=== PATIENT | female | born 1950 | race Caucasian/White ===

== ENCOUNTER → 2019-11-18 09:09 | Outpatient (BNVA) | payer MEDICARE, MEDICAID, SELFPAY | PROVIDERS: Visit Provider Family Medicine | DX: I10 Essential (primary) hypertension (principal); R73.9 Hyperglycemia, unspecified; F41.9 Anxiety disorder, unspecified; E55.9 Vitamin D deficiency, unspecified; E53.8 Deficiency of other specified B group vitamins; M48.061 Spinal stenosis, lumbar region without neurogenic claudication; F32.9 Major depressive disorder, single episode, unspecified; J44.9 Chronic obstructive pulmonary disease, unspecified | CPT/HCPCS: 80053; 80061; 82306; 82607; 84443 ==

== ENCOUNTER 2020-03-29 13:33 | Outpatient (CLI) | payer MEDICARE, MEDICAID, SELFPAY ==
--- NOTE | 2020-03-29 13:41 | XRR_ITS ---
PROCEDURE INFORMATION: Exam: XR Thoracic Spine, 3 Views Exam date and time: 03/29/2020 2:21 PM Age: 69 years old Clinical indication: Pain and injury or trauma; Fall; Initial encounter; Blunt trauma (contusions or hematomas); Pain in thoracic spine; Additional info: Thoracic back pain; Recent fall TECHNIQUE: Imaging protocol: XR of the thoracic spine, 3 views. COMPARISON: No relevant prior studies available. FINDINGS: Vertebrae: Osteopenia and osteoarthritis of the dorsal spine. No acute fracture. Normal alignment. Soft tissues: Metallic surgical clips seen in the left upper quadrant of the abdomen. XR/XR thoracic spine 3V* [id number] IMPRESSION: 1. Osteopenia and osteoarthritis 2. Otherwise No acute findings. 3. Metallic surgical clips left upper quadrant .
--- NOTE | 2020-03-29 13:41 | XRR_ITS ---
PROCEDURE INFORMATION: Exam: XR Cervical Spine, 2 or 3 Views Exam date and time: 03/29/2020 2:15 PM Age: 69 years old Clinical indication: Pain and injury or trauma; Fall; Initial encounter; Blunt trauma; Neck pain; Additional info: Neck pain; Recent fall TECHNIQUE: Imaging protocol: XR of the cervical spine, 2 or 3 views. COMPARISON: No relevant prior studies available. FINDINGS: Vertebrae: There is moderate osteoarthritis seen with intervertebral disc space narrowing and bone spurs at multiple levels. No acute fracture. There is loss of cervical lordosis seen which may reflect muscle spasm. Soft tissues: Unremarkable. XR/XR cervical spine 3V* [id number] IMPRESSION: 1. No acute findings. 2. Osteopenia and osteoarthritis 3. Loss of cervical lordosis
--- NOTE | 2020-03-29 13:41 | XRR_ITS ---
PROCEDURE INFORMATION: Exam: XR Lumbosacral Spine, 2 or 3 Views Exam date and time: 03/29/2020 2:27 PM Age: 69 years old Clinical indication: Pain and injury or trauma; Fall; Initial encounter; Blunt trauma (contusions or hematomas); Low back pain; Additional info: Low back pain; Recent fall TECHNIQUE: Imaging protocol: XR of the lumbosacral spine, 2 or 3 views. COMPARISON: No relevant prior studies available. FINDINGS: Vertebrae: Generalized osteopenia and mild osteoarthritis is seen. No acute fracture. Normal alignment. Soft tissues: Surgical clips seen in the left upper quadrant XR/XR lumbar spine 2-3V* [id number] IMPRESSION: 1. No acute findings. 2. Osteopenia and osteoarthritis 3. Surgical clips left upper quadrant
== END 2020-03-29 13:34 | disposition home or self-care (01) ==
LOC: RAD 13:39
PROVIDERS: PCP Family Medicine; Visit Provider Nurse Practitioner Family
DX: M85.88 Other specified disorders of bone density and structure, other site (principal); M47.814 Spondylosis without myelopathy or radiculopathy, thoracic region; M47.812 Spondylosis without myelopathy or radiculopathy, cervical region; M47.816 Spondylosis without myelopathy or radiculopathy, lumbar region
CPT/HCPCS: 72040; 72072; 72100

== ENCOUNTER → 2020-07-04 12:02 | Outpatient (BNVA) | payer MEDICARE, MEDICAID, SELFPAY | PROVIDERS: PCP Family Medicine; Visit Provider Family Medicine | DX: R52 Pain, unspecified (principal); W19.XXXA Unspecified fall, initial encounter | CPT/HCPCS: 71046; 73030 ==

== ENCOUNTER → 2021-08-06 17:00 | Outpatient (BNVA) | payer MEDICARE, MEDICAID, SELFPAY | PROVIDERS: PCP Family Medicine; Visit Provider Nurse Practitioner Family | DX: F41.9 Anxiety disorder, unspecified (principal); F32.A Depression, unspecified; I10 Essential (primary) hypertension; E55.9 Vitamin D deficiency, unspecified; R73.9 Hyperglycemia, unspecified | CPT/HCPCS: 80053; 80061; 82306; 82607; 83036; 83735; 84443; 85025 ==

== ENCOUNTER 2022-02-13 07:56 | Observation (INO) | payer MEDICARE, MEDICAID, SELFPAY ==
[2022-02-13] VITALS (22 sets, daily range): BP systolic 146–184; BP diastolic 76–131; PULSE 85–122; RESP 12–21; TEMP 35.9–36.8; O2SAT 90–99; BMI 39.4
--- NOTE | 2022-02-13 08:13 | CTR_ITS ---
PROCEDURE INFORMATION: Exam: CT Abdomen And Pelvis Without Contrast Exam date and time: 02/13/2022 8:31 AM Age: 71 years old Clinical indication: Abdominal pain; Localized; Upper; Prior surgery; Surgery type: Gastric bypass; Additional info: Upper ab pain, previous gastric bypass surgery TECHNIQUE: Imaging protocol: Computed tomography of the abdomen and pelvis without contrast. Total images: 275 Radiation optimization: All CT scans at this facility use at least one of these dose optimization techniques: automated exposure control; mA and/or kV adjustment per patient size (includes targeted exams where dose is matched to clinical indication); or iterative reconstruction. COMPARISON: CR XR lumbar spine 2-3V* [id number] 03/29/2020 2:20 PM RADIATION DOSE METRICS: Total DLP (mGy-cm): 1786.72 FINDINGS: Liver: Normal. No mass. Gallbladder and bile ducts: Normal. No calcified stones. No ductal dilation. Pancreas: Normal. No ductal dilation. Spleen: 4.9 cm lobulated fluid attenuated mass within the spleen felt to represent splenic cyst. Adrenal glands: Normal. No mass. Kidneys and ureters: 4.4 cm Largest cyst in kidneys that have multiple kidney cysts. These are incompletely evaluated due to no IV contrast. Stomach and bowel: Status post gastric Daniel-en-Y bypass surgery noted and appears unremarkable. Large amount of food stuff within the stomach may represent a gastric bezoar versus recent meal. Colonic diverticulosis is present without diverticulitis. Appendix: No evidence of appendicitis. Intraperitoneal space: Unremarkable. No free air. No significant fluid collection. Vasculature: Incidental phleboliths noted. Mild atherosclerotic disease is evident. Lymph nodes: Unremarkable. No enlarged lymph nodes. Urinary bladder: Unremarkable as visualized. Reproductive: Unremarkable as visualized. Bones/joints: Unremarkable. No acute fracture. Soft tissues: Unremarkable. CT/CT abdomen pelvis wo con [id number] IMPRESSION: Large amount of food stuff within the stomach may represent a gastric bezoar versus recent meal. COMMENTS: Consistent with the [employer]'s Incidental Findings Committee white paper (J Am Leticia Radiol 2018): Any incidental renal lesion less than 1 cm or classified as too small to characterize, or any incidental cystic renal lesion characterized as simple-appearing, is likely benign. No follow-up imaging is recommended for these lesions per consensus recommendations based on imaging criteria.
--- NOTE | 2022-02-13 08:15 | W.ED.ABDPA2 ---
Documented by User: LUKE Reyes 02/13/22 13:02 HPI - Abdominal Pain General: Chief Complaint: Abdominal Pain Stated Complaint: abd pain Time Seen by Provider: 02/13/22 07:57 Source: patient Mode of arrival: ambulatory Limitations: no limitations History of Present Illness: Patient is a 71-year-old female with extensive PMH here for complaints of upper abdominal pains that began yesterday. She states since onset her pain has been fairly constant in nature. She states pain seems to be worse with eating and drinking and did attempt eating yesterday but immediately vomited. She has not noticed any hematemesis. Patient tells me she has a history of a gastric bypass procedure performed in 1984. She also reports a history of a bowel obstruction approximately 5 years ago. She states she has had multiple abdominal surgeries related to abdominal abscesses from a diagnosis of pyoderma gangrenosum. Patient has not been running fevers. She reports fairly normal bowel movements however states she does have chronic constipation related to oxycodone use. She is passing flatulence. Patient is not having any chest pain or shortness of breath. She has not taken any of her medications yesterday evening or this morning secondary to fear of vomiting them up. MD elicited complaint: abdominal pain Onset (ago): day(s) (yesterday) Pain Consistency: constant Location: Epigastric and LUQ Severity: severe Radiation: none Migration to: no migration Exacerbating factors: eating Relieving factors: nothing Associated Symptoms: Reports nausea and vomiting; Denies chills, diarrhea, dysuria, fever(s), heartburn, hematemesis and syncope Review of Systems Const: Denies: fever(s), chills, body aches, fatigue or malaise Card: Denies: chest pain, palpitations, irregular heart rhythm, edema, swelling of feet/ankles, lightheadedness, syncope or pre-syncope Resp: Denies: dyspnea or chest congestion GI: Reports: abdominal pain, nausea and vomiting; Denies: hematemesis, heartburn or diarrhea : Denies: flank pain, dysuria or pelvic pain Musc: Denies: neck pain, back pain, extremity pain or joint pain Skin/Breast: Reports: other (multiple sores from her pyoderma gangrenosum) Neuro: Denies: headache(s), numbness in extremities, weakness in extremities or sensory changes Psych: Reports: anxiety PFSH ED PFSH: Medical History Anemia, unspecified Anxiety B12 deficiency Carpal tunnel syndrome, right COPD (chronic obstructive pulmonary disease) Encounter for counseling for care management of patient with chronic conditions and complex health needs using nurse-based model Gastro-esophageal reflux disease without esophagitis Hx of irritable bowel syndrome Hyperglycemia Hypertension Mixed incontinence urge and stress Neural foraminal stenosis of cervical spine Personality disorder, unspecified Pyoderma Sjogren's disease Thyroid nodule follows with Dr Nunez, ([facility] in [place]) Vitamin D deficiency Surgical History History of tonsillectomy and adenoidectomy Hx of cholecystectomy Hx of dilation and curettage Family History Brother Cancer brain Hyperlipidemia Hypertension Father Hypertension Hyperlipidemia Cancer CAD (coronary artery disease) Mother Hypertension Hyperlipidemia CAD (coronary artery disease) Sister Hyperlipidemia Hypertension Diabetes Stroke Son Cancer Social History Smoking and tobacco status: former smoker Second hand smoke exposure: No Alcohol intake: current Alcohol intake frequency: few times a month Alcohol type: wine Lives independently: Yes Household members: none Housing: House Marital status: / service: No Current occupational status: disabled History of recent travel: No Current gender identity: Female Physical Exam Const: COMMON NORMALS: patient oriented x3, no limitations and alert GENERAL APPEARANCE: cooperative and in distress (uncomfortable secondary to pain) NUTRITIONAL APPEARANCE: obese morbidly obese ORIENTATION/CONSCIOUSNESS: Yes awake, Yes oriented to person, Yes oriented to place and Yes oriented to time HENMT: COMMON NORMALS: normocephalic and atraumatic HEAD & SCALP: normal to inspection, normocephalic and atraumatic Chest: COMMONS NORMALS: normal inspection of the chest and normal palpation of entire chest wall Resp: COMMON NORMALS: normal respiratory effort and clear to auscultation bilaterally AUSCULTATION: clear to auscultation bilaterally Cardio: COMMON NORMALS: regular rhythm RATE: tachycardic (slight-102 during my examination) RHYTHM: regular rhythm GI: COMMON NORMALS: Soft to palpation and no masses INSPECTION: Yes scar (multiple previous abdominal surgery scars) AUSCULTATION: Yes Hypoactive bowel sounds present PALPATION: Yes Soft to palpation and Yes Tenderness to palpation present (GI) (epigastric/LUQ) : COMMON NORMALS: Yes no CVA tenderness BLADDER/KIDNEY EXAM: Yes no CVA tenderness Back/Pelvis: COMMON NORMALS: no CVA tenderness Extremity: COMMON NORMALS: normal to inspection GENERAL: Yes normal exam except as noted Neuro: FILOMENA COMA SCALE: document GCS findings [place] coma scale eye opening: Spontaneous [place] coma scale verbal response: Orientated Fil[place]a coma scale motor response: Obey commands Filomena coma scale total score: 15 COMMON NORMALS: patient oriented x3, moves all extremities, no focal motor deficits and no sensory deficits noted SENSORIUM/ORIENTATION: Yes alert, Yes oriented to person, Yes oriented to place and Yes oriented to time Course Consultations: Consultation #1: Dr. Espinal-recommends upper GI study as patient had unsuccessful PO challenge; consult with GI for endoscopy; stated he would graciously consult on patient if needed or if GI completions manager provider could not Vital Signs: Vital signs: Vital Signs Temperature 97.0 F L 02/13/22 13:32 Pulse Rate 116 H 02/13/22 13:32 Respiratory Rate 18 02/13/22 13:32 Blood Pressure 164/105 02/13/22 13:32 Pulse Oximetry 97 02/13/22 13:32 MDM - Abdominal Pain Medical Decision Making Patient is a 71-year-old with a history of gastric bypass surgery in 1984. Patient is not able to tell me any specifics regarding her surgery as it was done 17 [address] [place] [facility] radiologist felt patient most likely had a Daniel-en-Y. Patient has not been able to eat since Friday. She has not been able to take her home medications. PO challenge was attempted here and she was only able to hold down approximately 5 ounces of water before complaining of significant nausea and discomfort. Patient is on chronic opiates. She has a diagnosis of hyperglycemia but reportedly never diagnosed with diabetes and does not take medications for this. Certainly could have some gastroparesis related to this. I spoke to Dr. Espinal who recommended consulting with GI for endoscopy as well as an upper GI study. I have discussed case with Dr. Morton who will help with consults/hospitalist admission for patient. Lab Data : 02/13/22 08:20 02/13/22 08:20 Labs/Radiology: Radiology Impressions Abdomen/Pelvis CT 02/13/22 08:13 IMPRESSION: Large amount of food stuff within the stomach may represent a gastric bezoar versus recent meal. COMMENTS: Consistent with the [employer]'s Incidental Findings Committee white paper (J Am Leticia Radiol 2018): Any incidental renal lesion less than 1 cm or classified as too small to characterize, or any incidental cystic renal lesion characterized as simple-appearing, is likely benign. No follow-up imaging is recommended for these lesions per consensus recommendations based on imaging criteria. Upper GI Series 02/13/22 10:33 IMPRESSION: 1. Limited evaluation of the gastric bypass. 2. There is a large central mass consistent with a bezoar that was described by CT. This mass is displacing the gastric pouch and the Daniel limb. Bezoar is likely within the extruded pouch as contrast does not communicate with the bezoar but is displaced around the mass. Laboratory Results WBC 11.2 10^3/uL (4.0-10.0) H 02/13/22 08:20 RBC 4.38 10^6/uL (4.1-5.3) 02/13/22 08:20 Hgb 9.1 g/dL (11.5-15.3) L 02/13/22 08:20 Hct 29.2 % (37.0-47.0) L 02/13/22 08:20 MCV 66.7 fl (81-99) L 02/13/22 08:20 MCH 20.8 pg (28.0-34.0) L 02/13/22 08:20 MCHC 31.2 g/dL (30.0-36.0) 02/13/22 08:20 RDW 16.7 % (12.1-15.1) H 02/13/22 08:20 Plt Count 363 10^3/cmm (130-400) 02/13/22 08:20 MPV 10.3 fL (7.4-10.4) 02/13/22 08:20 Neut % (Auto) 76.5 % 02/13/22 08:20 Lymph % (Auto) 14.5 % 02/13/22 08:20 [place] % (Auto) 7.7 % 02/13/22 08:20 Eos % (Auto) 0.6 % 02/13/22 08:20 Baso % (Auto) 0.4 % 02/13/22 08:20 Neut # (Auto) 8.57 10^3/uL (1.8-7.7) H 02/13/22 08:20 Lymph # (Auto) 1.6 10^3/uL (0.8-4.8) 02/13/22 08:20 [place] # (Auto) 0.9 10^3/uL (0.2-0.9) 02/13/22 08:20 Eos # (Auto) 0.1 10^3/uL (0.0-0.8) 02/13/22 08:20 Baso # (Auto) 0.0 10^3/uL (0.0-0.1) 02/13/22 08:20 Nucleated RBC % (auto) 0 % 02/13/22 08:20 Nucleated RBCs # 0.0 /100WBC 02/13/22 08:20 Sodium 131 mmol/L (136-145) L 02/13/22 08:20 Potassium 4.2 mmol/L (3.5-5.1) 02/13/22 08:20 Chloride 94 mmol/L (98-107) L 02/13/22 08:20 Carbon Dioxide 23 mmol/L (22-29) 02/13/22 08:20 Anion Gap 18.2 (5-19) 02/13/22 08:20 BUN 18 mg/dL (8-23) 02/13/22 08:20 Creatinine 1.1 mg/dL (0.5-0.9) H 02/13/22 08:20 GFR Calculation Not Reportable 02/13/22 08:20 Glucose 177 mg/dL (65-115) H 02/13/22 08:20 Calculated Osmolality 278 mOsm/kg (285-295) L 02/13/22 08:20 Calcium 10.0 mg/dL (8.5-10.5) 02/13/22 08:20 Total Bilirubin 0.4 mg/dL (0.15-1.2) 02/13/22 08:20 AST 21 U/L (0-32) 02/13/22 08:20 ALT 19 U/L (0-33) 02/13/22 08:20 Alkaline Phosphatase 246 IU/L (35-105) H 02/13/22 08:20 Total Protein 8.2 g/dL (6.6-8.7) 02/13/22 08:20 Albumin 4.6 g/dL (3.5-5.2) 02/13/22 08:20 Globulin 3.6 g/dL (1.3-4.6) 02/13/22 08:20 Lipase 60 U/L (13-60) 02/13/22 08:20 Discharge Plan Discharge Patient Disposition: Home Condition: Stable Coding Level of Care Code ED Service Station Equipment Mechanic for Chg Fwd Exam Comprehensive Documented by User: Samy Morton DO 02/13/22 13:59 HPI - Abdominal Pain General: Chief Complaint: Abdominal Pain Stated Complaint: abd pain Time Seen by Provider: 02/13/22 07:57 PFSH ED PFSH: Medical History Anemia, unspecified Anxiety B12 deficiency Carpal tunnel syndrome, right COPD (chronic obstructive pulmonary disease) Encounter for counseling for care management of patient with chronic conditions and complex health needs using nurse-based model Gastro-esophageal reflux disease without esophagitis Hx of irritable bowel syndrome Hyperglycemia Hypertension Mixed incontinence urge and stress Neural foraminal stenosis of cervical spine Personality disorder, unspecified Pyoderma Sjogren's disease Thyroid nodule follows with Dr Nunez, ([facility] in [place]) Vitamin D deficiency Surgical History History of tonsillectomy and adenoidectomy Hx of cholecystectomy Hx of dilation and curettage Family History Brother Cancer brain Hyperlipidemia Hypertension Father Hypertension Hyperlipidemia Cancer CAD (coronary artery disease) Mother Hypertension Hyperlipidemia CAD (coronary artery disease) Sister Hyperlipidemia Hypertension Diabetes Stroke Son Cancer Social History Smoking and tobacco status: former smoker Second hand smoke exposure: No Alcohol intake: current Alcohol intake frequency: few times a month Alcohol type: wine Lives independently: Yes Household members: none Housing: House Marital status: / service: No Current occupational status: disabled History of recent travel: No Current gender identity: Female Physical Exam Neuro: FILOMENA COMA SCALE: document GCS findings [place] coma scale total score: 15 Course Vital Signs: Vital signs: Vital Signs Temperature 97.0 F L 02/13/22 13:32 Pulse Rate 116 H 02/13/22 13:32 Respiratory Rate 18 02/13/22 13:32 Blood Pressure 164/105 02/13/22 13:32 Pulse Oximetry 97 02/13/22 13:32 MDM - Abdominal Pain Medical Decision Making Patient is a 71-year-old with a history of gastric bypass surgery in 1984. Patient is not able to tell me any specifics regarding her surgery as it was done 17 years ago in [place]. [facility] radiologist felt patient most likely had a Daniel-en-Y. Patient has not been able to eat since Friday. She has not been able to take her home medications. PO challenge was attempted here and she was only able to hold down approximately 5 ounces of water before complaining of significant nausea and discomfort. Patient is on chronic opiates. She has a diagnosis of hyperglycemia but reportedly never diagnosed with diabetes and does not take medications for this. Certainly could have some gastroparesis related to this. I spoke to Dr. Espinal who recommended consulting with GI for endoscopy as well as an upper GI study. I have discussed case with Dr. Morton who will help with consults/hospitalist admission for patient. Chart reviewed and patient discussed with midlevel. Agree with assessment and plan. Discussed with Dr. Duncan also discussed with Dr. Mcmahan. Dr. Duncan is planning to take the patient to surgery for EGD under general anesthesia to see if he can relieve the retained food he is concerned it may be an esophageal impaction. That is unsuccessful or he has other findings may potentially admit to hospitalist with him to consult. Dr. Espinal has discussed the case with Tracy De La Rosa and indicated he is willing to assist as well if the patient is admitted. Reviewed with the patient she expressed understanding wish to proceed with EGD Dr. Duncan is in the emergency room and seeing patient. Medical Records I reviewed the patient's medical records. Lab Data I reviewed the patient's lab results. : 02/13/22 08:20 02/13/22 08:20 Labs/Radiology: Radiology Impressions Abdomen/Pelvis CT 02/13/22 08:13 IMPRESSION: Large amount of food stuff within the stomach may represent a gastric bezoar versus recent meal. COMMENTS: Consistent with the [place] [employer]'s Incidental Findings Committee white paper (J Am Leticia Radiol 2018): Any incidental renal lesion less than 1 cm or classified as too small to characterize, or any incidental cystic renal lesion characterized as simple-appearing, is likely benign. No follow-up imaging is recommended for these lesions per consensus recommendations based on imaging criteria. Upper GI Series 02/13/22 10:33 IMPRESSION: 1. Limited evaluation of the gastric bypass. 2. There is a large central mass consistent with a bezoar that was described by CT. This mass is displacing the gastric pouch and the Daniel limb. Bezoar is likely within the extruded pouch as contrast does not communicate with the bezoar but is displaced around the mass. Laboratory Results WBC 11.2 10^3/uL (4.0-10.0) H 02/13/22 08:20 RBC 4.38 10^6/uL (4.1-5.3) 02/13/22 08:20 Hgb 9.1 g/dL (11.5-15.3) L 02/13/22 08:20 Hct 29.2 % (37.0-47.0) L 02/13/22 08:20 MCV 66.7 fl (81-99) L 02/13/22 08:20 MCH 20.8 pg (28.0-34.0) L 02/13/22 08:20 MCHC 31.2 g/dL (30.0-36.0) 02/13/22 08:20 RDW 16.7 % (12.1-15.1) H 02/13/22 08:20 Plt Count 363 10^3/cmm (130-400) 02/13/22 08:20 MPV 10.3 fL (7.4-10.4) 02/13/22 08:20 Neut % (Auto) 76.5 % 02/13/22 08:20 Lymph % (Auto) 14.5 % 02/13/22 08:20 [place] % (Auto) 7.7 % 02/13/22 08:20 Eos % (Auto) 0.6 % 02/13/22 08:20 Baso % (Auto) 0.4 % 02/13/22 08:20 Neut # (Auto) 8.57 10^3/uL (1.8-7.7) H 02/13/22 08:20 Lymph # (Auto) 1.6 10^3/uL (0.8-4.8) 02/13/22 08:20 [place] # (Auto) 0.9 10^3/uL (0.2-0.9) 02/13/22 08:20 Eos # (Auto) 0.1 10^3/uL (0.0-0.8) 02/13/22 08:20 Baso # (Auto) 0.0 10^3/uL (0.0-0.1) 02/13/22 08:20 Nucleated RBC % (auto) 0 % 02/13/22 08:20 Nucleated RBCs # 0.0 /100WBC 02/13/22 08:20 Sodium 131 mmol/L (136-145) L 02/13/22 08:20 Potassium 4.2 mmol/L (3.5-5.1) 02/13/22 08:20 Chloride 94 mmol/L (98-107) L 02/13/22 08:20 Carbon Dioxide 23 mmol/L (22-29) 02/13/22 08:20 Anion Gap 18.2 (5-19) 02/13/22 08:20 BUN 18 mg/dL (8-23) 02/13/22 08:20 Creatinine 1.1 mg/dL (0.5-0.9) H 02/13/22 08:20 GFR Calculation Not Reportable 02/13/22 08:20 Glucose 177 mg/dL (65-115) H 02/13/22 08:20 Calculated Osmolality 278 mOsm/kg (285-295) L 02/13/22 08:20 Calcium 10.0 mg/dL (8.5-10.5) 02/13/22 08:20 Total Bilirubin 0.4 mg/dL (0.15-1.2) 02/13/22 08:20 AST 21 U/L (0-32) 02/13/22 08:20 ALT 19 U/L (0-33) 02/13/22 08:20 Alkaline Phosphatase 246 IU/L (35-105) H 02/13/22 08:20 Total Protein 8.2 g/dL (6.6-8.7) 02/13/22 08:20 Albumin 4.6 g/dL (3.5-5.2) 02/13/22 08:20 Globulin 3.6 g/dL (1.3-4.6) 02/13/22 08:20 Lipase 60 U/L (13-60) 02/13/22 08:20 Discharge Plan Discharge Patient Disposition: Home Condition: Stable Coding Level of Care Code ED Service Station Equipment Mechanic for Lux Fwd Exam Comprehensive
--- NOTE | 2022-02-13 08:22 | ECG_ITS ---
[facility] Test Date: 2022-02-13 Pat Name: Paige Spicer Department: Room: Gender: Female Service Technician: : 1950 Requested By: Tracy De La Rosa Order Number: [id number] Goldstein MD: Violet Glaser M.D. Measurements Intervals [place] Rate: 97 P: 67 OK: 192 QRS: 33 QRSD: 94 T: 68 QT: 365 QTc: 464 Interpretive Statements SINUS RHYTHM MINIMAL ST DEPRESSION [0.025+ mV ST DEPRESSION] No previous ECG available for comparison Electronically Signed On 02-13-2022 22:30:03 CDT by Violet Glaser M.D. [email or web address]
[2022-02-13] MEDS: metoprolol tartrate 1 mg/1 mL SDV 5 mL 2.5 MG IVP ×2 (08:35→10:57)
[2022-02-13 08:36] LABS: Basophils % 0.4 %; Eosinophils # 0.1 10^3/uL (0.0-0.8); Eosinophils % 0.6 %; Hematocrit 29.2 % (37.0-47.0); Hemoglobin 9.1 g/dL (11.5-15.3); Lymphocytes # 1.6 10^3/uL (0.8-4.8); Lymphocytes % 14.5 %; Mean Corpuscular HGB Conc 31.2 g/dL (30.0-36.0); Mean Corpuscular Hemoglobin 20.8 pg (28.0-34.0); Mean Corpuscular Volume 66.7 fl (81-99); Mean Platelet Volume 10.3 fL (7.4-10.4); Monocytes # 0.9 10^3/uL (0.2-0.9); Monocytes % 7.7 %; Neutrophils # 8.57 10^3/uL (1.8-7.7); Neutrophils % 76.5 %; Nucleated Red Blood Cells % 0 %; Platelet Count 363 10^3/cmm (130-400); Red Blood Count 4.38 10^6/uL (4.1-5.3); Red Cell Distribution Width 16.7 % (12.1-15.1); White Blood Count 11.2 10^3/uL (4.0-10.0)
[2022-02-13] MEDS: HYDROmorphone 1 mg/mL INJ 1 mL IVP (08:36)
[2022-02-13] MEDS: ondansetron 2 mg/ML SDV 2 mL 4 MG IVP (08:37)
[2022-02-13 09:13] LABS: Alanine Aminotransferase 19 U/L (0-33); Albumin Level 4.6 g/dL (3.5-5.2); Alkaline Phosphatase 246 IU/L (35-105); Anion Gap 18.2 (5-19); Aspartate Amino Transferase 21 U/L (0-32); Blood Urea Nitrogen 18 mg/dL (8-23); Carbon Dioxide 23 mmol/L (22-29); Chloride 94 mmol/L (98-107); Globulin 3.6 g/dL (1.3-4.6); Glucose 177 mg/dL (65-115); Lipase 60 U/L (13-60); Osmolality Calculated 278 mOsm/kg (285-295); Potassium 4.2 mmol/L (3.5-5.1); Sodium 131 mmol/L (136-145); Total Bilirubin 0.4 mg/dL (0.15-1.2); Total Protein 8.2 g/dL (6.6-8.7)
[2022-02-13] MEDS: metoclopramide 5 mg/mL SDV 2 mL 10 MG IVP (09:39)
--- NOTE | 2022-02-13 10:33 | FL_ITS ---
WS: [id number] Limited upper GI examination. HISTORY: Vomiting. These are noted on a CT evaluation. Patient status post gastric bypass. Fluoroscopy time: 1.0 minutes. Limited evaluation of the stomach due to patient's weakness and vomiting. Patient was able to drink several swallows of the barium mixture. Delayed emptying of the esophagus. Barium initially fills a very small stomach pouch. The stomach pouch is being displaced by the large bezoar. Due to the displacement by the bezoar this is probably in the extruded pouch. On additional i maging there is increased distention of the stomach pouch which appears dilated. The Daniel limb is pat ent but dilated, unable to follow this for any length of time due to patient's weakness. FL/FL upper GI series [id number] IMPRESSION: 1. Limited evaluation of the gastric bypass. 2. There is a large central mass consistent with a bezoar that was described by CT. This mass is displacing the gastric pouch and the Daniel limb. Bezoar is lik slime within the extruded pouch as contrast does not communicate with the bezoar but is displaced around the mass.
[2022-02-13] MEDS: HYDROmorphone 1 mg/mL INJ 1 mL 0.5 MG IVP (10:56)
[2022-02-13] MEDS: sodium chloride 0.9% 1,000 ML 999 ML IV ×2 (11:47→17:51)
[2022-02-13] MEDS: hyDRALAzine 20 mg/mL INJ 1 mL IVP (12:45)
--- NOTE | 2022-02-13 13:19 | P.ANESASSM_ITS ---
Pre-Anesthetic Assessment Height/Weight: Height 1.63 m Weight 104.326 kg Temp Pulse Resp BP Pulse Ox 96.7 F L 85 18 176/102 95 02/13/22 08:04 02/13/22 09:03 02/13/22 10:56 02/13/22 09:03 02/13/22 10:56 Preop Diagnosis: bezoar vs abominal mass vs food bolus Operation Date: 02/13/22 12:50 Proposed Procedures p EGD(Not Applicable) - Kieran Duncan MD Familial anesthetic complications: none Was Beta Shelby taken within 24 hours: Yes Was Clonidine taken within 24 hours: N/A Social No alcohol and No tobacco Exam alert, oriented x 3, clear to auscultation bilaterally and regular rate & rhythm Airway Submandibular: within normal limits Cervical ROM: within normal limits Mallampati: Class II Dentition: chipped Comments: Comments: missing teeth Pulmonary Chronic Obstructive Pulmonary Disease CV/HEM Anemia and Hypertension EKG 02/13/22 ? ? Interpretive Statements SINUS RHYTHM MINIMAL ST DEPRESSION? [0.025+ mV ST DEPRESSION] No previous ECG available for comparison [email or web address] Hyponatremia [facility] Gastroesophageal Reflux Disease s/p gastric bypass CT Scann 02/13/22 Upper GI Series? 02/13/22 10:33 IMPRESSION: 1. Limited evaluation of the gastric bypass. 2. There is a large central mass consistent with a bezoar that was described by CT. This mass is displacing the gastric pouch and the Daniel limb. Bezoar is likely within the extruded pouch as contrast does not communicate with the bezoar but is displaced around the mass. ? Metabolic Pyoderma Musc/skel Lower Back Pain Sjorgen's Neuropsych Anxiety Anesthetic Plan ASA status: 3 Anesthesia: Anesthesia Evaluation and General Other: We discussed risk and benefits of general anesthesia including PONV, sore throat (sometimes severe), corneal abrasion, positioning and peripheral nerve injuries, life threatening allergic reaction, post operative ICU admission requiring prolonged intubation, aspiration, stroke, heart attack, , and rare incidences of recall. Patient consents to proceed with general anesthesia. Risk of > 500 ml blood loss (7ml/kg in children): No Medications/Allergies Home Medications Medication Instructions Recorded Confirmed Last Taken Type triamcinolone acetonide 0.1 % 1 applic TOPICAL BID PRN #30 gm 09/23/19 02/13/22 Unknown Rx topical ointment tens #1 ea 05/16/20 02/13/22 Unknown Rx dfnbzzcldy-toaklqyxdybgb-ntaicxpb 1 tab PO QID PRN 07/04/20 02/13/22 Unknown History 50 mg-325 mg-40 mg tablet oxycodone-acetaminophen 5 mg-325 1 tab PO QID PRN 07/04/20 02/13/22 02/12/22 23:00 History mg tablet albuterol sulfate 2.5 mg (3 mL) INHALATION QID PRN 05/21/21 02/13/22 Unknown Rx #180 ml nebulizer machine, mask, #1 ea 05/21/21 02/13/22 Unknown Rx tubing/supplies Melatonin Gummy 1 tab PO BEDTIME 02/13/22 02/13/22 Unknown History Vitamin B12 Gummy 1 tab PO DAILY 02/13/22 02/13/22 Unknown History Vitamin D3 Gummy See Rx Instructions .ROUTE .COMPLEX 02/13/22 02/13/22 Unknown History albuterol sulfate 90 mcg/actuation 2 puff INHALATION Q6H PRN 02/13/22 02/13/22 Unknown History aerosol inhaler buspirone 10 mg tablet 10 mg PO BID 02/13/22 02/13/22 Unknown History diclofenac sodium 1 % topical gel 2 g TOPICAL QID PRN 02/13/22 02/13/22 Unknown History docusate sodium 100 mg capsule 100 - 300 mg PO DAILY 02/13/22 02/13/22 Unknown History (Stool Softener) fluticasone propionate 50 2 spray INTRANASAL DAILY 02/13/22 02/13/22 Unknown His tory mcg/actuation nasal spray,suspension (Flonase Allergy Relief) gabapentin 100 mg capsule 100 mg PO BID@08,12 02/13/22 02/13/22 Unknown History gabapentin 400 mg capsule 400 mg PO BEDTIME 02/13/22 02/13/22 Unknown History lidocaine 5 % topical ointment See Rx Instructions .ROUTE .COMPLEX 02/13/22 02/13/22 Unknown History loratadine 10 mg tablet 10 mg PO BEDTIME 02/13/22 02/13/22 Unknown History losartan 100 1 tab PO QPM 02/13/22 02/13/22 Unknown History mg-hydrochlorothiazide 12.5 mg tablet metoprolol succinate 100 mg 200 mg PO BEDTIME 02/13/22 02/13/22 Unknown History tablet,extended release 24 hr multivitamin with minerals-folic 1 tab PO DAILY 02/13/22 02/13/22 Unknown History acid 200 mcg chewable tablet (Adult Multivitamin Gummies) tizanidine 4 mg tablet 4 mg PO BID PRN 02/13/22 02/13/22 Unknown History venlafaxine 150 mg 150 mg PO BEDTIME 02/13/22 02/13/22 Unknown History capsule,extended release 24 hr venlafaxine 75 mg capsule,extended 75 mg PO BEDTIME 02/13/22 02/13/22 Unknown History release 24 hr Allergies Allergy/AdvReac Type Severity Reaction Status Date / Time amlodipine Allergy Severe SWELLING Verified 02/13/22 09:01 OF THE FEET codeine Allergy Unknown unknown Verified 02/13/22 09:01 morphine Allergy Unknown PT STATES Verified 02/13/22 09:02 CAN HAVE IN SMALL DOSES fluticasone AdvReac Intermediate rapid Verified 02/13/22 09:01 [From Advair Diskus] heart rate salmeterol AdvReac Intermediate rapid Verified 02/13/22 09:01 [From Advair Diskus] heart rate tramadol [From Ultram] AdvReac Intermediate vomiting Verified 02/13/22 09:01 Current Medications Generic Name Dose Route Start Last Admin Trade Name Freq PRN Reason Stop Dose Admin Sodium Chloride 1,000 mls @ 999 mls/hr 02/13/22 11:45 02/13/22 11:47 Sodium Chloride 0.9% IV 999 mls/hr .Q1H1M CESILIA Administration PFSH Anesthesia Medical History Anemia, unspecified Anxiety B12 deficiency Carpal tunnel syndrome, right COPD (chronic obstructive pulmonary disease) Encounter for counseling for care management of patient with chronic conditions and complex health needs using nurse-based model Gastro-esophageal reflux disease without esophagitis Hx of irritable bowel syndrome Hyperglycemia Hypertension Mixed incontinence urge and stress Neural foraminal stenosis of cervical spine Personality disorder, unspecified Pyoderma Sjogren's disease Thyroid nodule follows with Dr Nunez, ([facility] in [place]) Vitamin D deficiency Surgical History History of tonsillectomy and adenoidectomy Hx of cholecystectomy Hx of dilation and curettage Family History Brother Cancer brain Hyperlipidemia Hypertension Father Hypertension Hyperlipidemia Cancer CAD (coronary artery disease) Mother Hypertension Hyperlipidemia CAD (coronary artery disease) Sister Hyperlipidemia Hypertension Diabetes Stroke Son Cancer Social History Smoking and tobacco status: former smoker Second hand smoke exposure: No Alcohol intake: current Alcohol intake frequency: few times a month Alcohol type: wine Lives independently: Yes Household members: none Housing: House Marital status: / service: No Current occupational status: disabled History of recent travel: No Current gender identity: Female Data Anesthesia : 02/13/22 08:20 02/13/22 08:20 Short CBC 02/13/22 Range/Units 08:20 WBC 11.2 H (4.0-10.0) 10^3/uL Hgb 9.1 L (11.5-15.3) g/dL Hct 29.2 L (37.0-47.0) % MCV 66.7 L (81-99) fl Plt Count 363 (130-400) 10^3/cmm Neut % (Auto) 76.5 % Neut # (Auto) 8.57 H (1.8-7.7) 10^3/uL BMP 02/13/22 08:20 Sodium 131 L Potassium 4.2 Chloride 94 L Carbon Dioxide 23 BUN 18 Creatinine 1.1 H Glucose 177 H Calcium 10.0 Liver Function 02/13/22 Range/Units 08:20 Total Bilirubin 0.4 (0.15-1.2) mg/dL AST 21 (0-32) U/L ALT 19 (0-33) U/L Alkaline Phosphatase 246 H (35-105) IU/L Albumin 4.6 (3.5-5.2) g/dL Cardiac Studies: No Data to Display
--- NOTE | 2022-02-13 13:59 | P.HP_ITS ---
Same Day Surgery H&P Indication for Procedure/HPI DATE OF PROCEDURE: February 13, 2022 CHIEF COMPLAINT/INDICATIONFOR SURGICAL PROCEDURE: Nausea and vomiting PREOP DIAGNOSIS: Nausea and vomiting PLANNED PROCEDURE: Operation Date: 02/13/22 12:50 Proposed Procedures p EGD(Not Applicable) - Kieran Duncan MD Medications/Allergies* Home Medications Medication Instructions Recorded Confirmed Type qapgbgpidd-rpskxdmpmqtmd-vbyrcsff 1 tab PO QID PRN 07/04/20 02/13/22 History 50 mg-325 mg-40 mg tablet oxycodone-acetaminophen 5 mg-325 1 tab PO QID PRN 07/04/20 02/13/22 History mg tablet Melatonin Gummy 1 tab PO BEDTIME 02/13/22 02/13/22 History Vitamin B12 Gummy 1 tab PO DAILY 02/13/22 02/13/22 History Vitamin D3 Gummy See Rx Instructions .ROUTE .COMPLEX 02/13/22 02/13/22 History albuterol sulfate 90 mcg/actuation 2 puff INHALATION Q6H PRN 02/13/22 02/13/22 History aerosol inhaler buspirone 10 mg tablet 10 mg PO BID 02/13/22 02/13/22 History diclofenac sodium 1 % topical gel 2 g TOPICAL QID PRN 02/13/22 02/13/22 History docusate sodium 100 mg capsule 100 - 300 mg PO DAILY 02/13/22 02/13/22 History (Stool Softener) fluticasone propionate 50 2 spray INTRANASAL DAILY 02/13/22 02/13/22 History mcg/actuation nasal spray,suspension (Flonase Allergy Relief) gabapentin 100 mg capsule 100 mg PO BID@08,12 02/13/22 02/13/22 History gabapentin 400 mg capsule 400 mg PO BEDTIME 02/13/22 02/13/22 History lidocaine 5 % topical ointment See Rx Instructions .ROUTE .COMPLEX 02/13/22 02/13/22 History loratadine 10 mg tablet 10 mg PO BEDTIME 02/13/22 02/13/22 History losartan 100 1 tab PO QPM 02/13/22 02/13/22 History mg-hydrochlorothiazide 12.5 mg tablet metoprolol succinate 100 mg 200 mg PO BEDTIME 02/13/22 02/13/22 History tablet,extended release 24 hr multivitamin with minerals-folic 1 tab PO DAILY 02/13/22 02/13/22 History acid 200 mcg chewable tablet (Adult Multivitamin Gummies) tizanidine 4 mg tablet 4 mg PO BID PRN 02/13/22 02/13/22 History venlafaxine 150 mg 150 mg PO BEDTIME 02/13/22 02/13/22 History capsule,extended release 24 hr venlafaxine 75 mg capsule,extended 75 mg PO BEDTIME 02/13/22 02/13/22 History release 24 hr Allergies/Adverse Reactions Allergy/AdvReac Type Severity Reaction Status Date / Time amlodipine Allergy Severe SWELLING Verified 02/13/22 09:01 OF THE FEET codeine Allergy Unknown unknown Verified 02/13/22 09:01 morphine Allergy Unknown PT STATES Verified 02/13/22 09:02 CAN HAVE IN SMALL DOSES fluticasone AdvReac Intermediate rapid Verified 02/13/22 09:01 [From Advair Diskus] heart rate salmeterol AdvReac Intermediate rapid Verified 02/13/22 09:01 [From Advair Diskus] heart rate tramadol [From Ultram] AdvReac Intermediate vomiting Verified 02/13/22 09:01 Current Medications: Generic Name Dose Route Start Last Admin Trade Name Freq PRN Reason Stop Dose Admin Sodium Chloride 1,000 mls @ 999 mls/hr 02/13/22 11:45 02/13/22 11:47 Sodium Chloride 0.9% IV 999 mls/hr .Q1H1M CESILIA Administration Pertinent History/Comorbid Conditions* Medical History (Updated 08/09/21 @ 13:40 by SALBADOR Boyle) Anemia, unspecified Anxiety B12 deficiency Carpal tunnel syndrome, right COPD (chronic obstructive pulmonary disease) Encounter for counseling for care management of patient with chronic conditions and complex health needs using nurse-based model Gastro-esophageal reflux disease without esophagitis Hx of irritable bowel syndrome Hyperglycemia Hypertension Mixed incontinence urge and stress Neural foraminal stenosis of cervical spine Personality disorder, unspecified Pyoderma Sjogren's disease Thyroid nodule follows with Dr Nunez, ([facility] in [place]) Vitamin D deficiency Surgical History (Updated 11/18/19 @ 08:22 by Helen Noguera MD) History of tonsillectomy and adenoidectomy Hx of cholecystectomy Hx of dilation and curettage Family History (Updated 09/21/19 @ 12:38 by Katheryn Young, PALLIATIVE NURSE, RT) Diabetes Sister CAD (coronary artery disease) Father Mother Hyperlipidemia Brother Father Mother Sister Cancer Brother brain Father Son Hypertension Brother Father Mother Sister Stroke Sister Social History Smoking and tobacco status: former smoker Second hand smoke exposure: No Alcohol intake: current Alcohol intake frequency: few times a month Alcohol type: wine Lives independently: Yes Household members: none Housing: House Marital status: / service: No Current occupational status: disabled History of recent travel: No Current gender identity: Female Pertinent Exam Findings alert, oriented x 3, clear to auscultation bilaterally, regular rate & rhythm, operative site marked and procedure specific exam findings Recommendations Surgery/Procedure today Coding Level of Care Code Acute 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
[2022-02-13] MEDS: EPINEPHrine 1 mg/mL INJ XX (14:10)
[2022-02-13] MEDS: fentaNYL 50 mcg/mL INJ 2mL IVP (15:02)
--- NOTE | 2022-02-13 15:27 | ANE.PACU2 ---
Inpatient post-anesthesia follow up: Airway intact: Yes Vital signs: Temperature 97.0 F Pulse Rate 104 Respiratory Rate 20 Blood Pressure 148/76 Pulse Oximetry 96 Oxygen Delivery Me thod Nasal Cannula Oxygen Flow Rate 6 Fraction of Inspir ed Oxygen Hydration adequate: Yes Nausea and vomiting: No Pain level: 1 Mental status: Baseline
--- NOTE | 2022-02-13 16:36 | ANE.PACU2 ---
Inpatient post-anesthesia follow up: Airway intact: Yes Vital signs: Temperature 98.2 F Pulse Rate 101 Respiratory Rate 16 Blood Pressure 162/85 Pulse Oximetry 97 Oxygen Delivery Me thod Nasal Cannula Oxygen Flow Rate 6 Fraction of Inspir ed Oxygen Hydration adequate: Yes Nausea and vomiting: No Pain level: 1 Mental status: Baseline
--- NOTE | 2022-02-13 16:43 | XRR_ITS ---
PROCEDURE INFORMATION: Exam: XR Chest Exam date and time: 02/13/2022 7:07 PM Age: 71 years old Clinical indication: Cough and shortness of breath; Prior surgery; Surgery type: Gb; Patient HX: C/O cough with SOB. ; Additional info: Cough, hypoxia TECHNIQUE: Imaging protocol: Radiologic exam of the chest. Views: 1 view. COMPARISON: CR XR chest 2V* [id number] 07/04/2020 11:38 AM FINDINGS: Lungs: Mild diffuse coarsening of the lung parenchyma. No consolidation. Pleural spaces: No pleural effusion. No pneumothorax. Heart/Mediastinum: No cardiomegaly. Bones/joints: Visualized osseous structures are intact. XR/XR chest 1V portable [id number] IMPRESSION: No acute findings.
--- NOTE | 2022-02-13 17:11 | P.HP_ITS ---
Providers/Chief Complaint Admitting Physician: Kieran Duncan MD Primary Care Provider: Helen Noguera MD Chief Complaint: abd pain History of Present Illness Pleasant 71-year-old lady with history of multiple abdominal surgeries including gastric bypass who came in due to abdominal pain, nausea, vomiting after eating, has not been able to eat since Friday, on assessment with CT abdomen pelvis found to have a large amount of food stuff within the stomach, possibly gastric blood or versus recent meal, upper GI series limited evaluation of gastric bypass, with large central mass consistent with possible there was described by CT. Mass is displacing gastric pouch and Daniel limb. There is what is likely within the extruded pouchitis contrast does not communicate with the deltoid but is displaced around the mass. With attempted p.o. challenge in ER was only able to hold 5 ounces of water. Denies any history of diabetes. Denies any medication or alcohol intake. 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 Underwent EGD. Currently back from procedure up to medical surgical floor. Requesting for some pain medication for her chronic spinal stenosis pain. Having some epigastric/left upper quadrant discomfort. Currently is having some cough, has been on nasal cannula oxygen 6 L, normally not on oxygen. Coughing up some beige thick purulent appearing sputum. Denies fever, chills, headache, diarrhea. Last bowel movement yesterday but small. Prior to that does not remember. At home takes oxycodones for chronic pain due to spinal stenosis. Review of Systems Const: Denies: fever(s), chills, body aches or malaise Eyes: Denies: change in vision, eye discomfort or eye redness ENMT: Denies: throat pain, oral sores or ear or mastoid pain Card: Denies: chest pain, edema, pre-syncope or dyspnea on exertion Resp: Reports: productive cough; Denies: dyspnea, change in phlegm color or hemoptysis GI: Reports: abdominal pain, nausea and vomiting; Denies: diarrhea, constipation, hematochezia or melena : Denies: flank pain, urinary frequency or hematuria Musc: Reports: back pain (Chronic); Denies: joint swelling or joint redness Skin/Breast: Denies: rash or new lesions Neuro: Denies: headache(s), numbness in extremities, weakness in extremities, dizziness, confusion or seizure-like activity Endo: Denies: polyuria or polydipsia Thiago/Lymph: Denies: easy bleeding or tender lymph nodes All/Imm: Denies: urticaria or tongue swelling Medications/Allergies Home Medications Medication Instructions Recorded Confirmed Last Taken Type triamcinolone acetonide 0.1 % 1 applic TOPICAL BID PRN #30 gm 09/23/19 02/13/22 Unknown Rx topical ointment tens #1 ea 05/16/20 02/13/22 Unknown Rx oumpvanuvc-ycxsjfismbjef-xlyyusqm 1 tab PO QID PRN 07/04/20 02/13/22 Unknown History 50 mg-325 mg-40 mg tablet oxycodone-acetaminophen 5 mg-325 1 tab PO QID PRN 07/04/20 02/13/22 02/12/22 23:00 History mg tablet albuterol sulfate 2.5 mg (3 mL) INHALATION QID PRN 05/21/21 02/13/22 Unknown Rx #180 ml nebulizer machine, mask, #1 ea 05/21/21 02/13/22 Unknown Rx tubing/supplies Melatonin Gummy 1 tab PO BEDTIME 02/13/22 02/13/22 Unknown History Vitamin B12 Gummy 1 tab PO DAILY 02/13/22 02/13/22 Unknown History Vitamin D3 Gummy See Rx Instructions .ROUTE .COMPLEX 02/13/22 02/13/22 Unknown History albuterol sulfate 90 mcg/actuation 2 puff INHALATION Q6H PRN 02/13/22 02/13/22 Unknown History aerosol inhaler buspirone 10 mg tablet 10 mg PO BID 02/13/22 02/13/22 Unknown History diclofenac sodium 1 % topical gel 2 g TOPICAL QID PRN 02/13/22 02/13/22 Unknown History docusate sodium 100 mg capsule 100 - 300 mg PO DAILY 02/13/22 02/13/22 Unknown History (Stool Softener) fluticasone propionate 50 2 spray INTRANASAL DAILY 02/13/22 02/13/22 Unknown History mcg/actuation nasal spray,suspension (Flonase Allergy Relief) gabapentin 100 mg capsule 100 mg PO BID@08,12 02/13/22 02/13/22 Unknown History gabapentin 400 mg capsule 400 mg PO BEDTIME 02/13/22 02/13/22 Unknown History lidocaine 5 % topical ointment See Rx Instructions .ROUTE .COMPLEX 02/13/22 02/13/22 Unknown History loratadine 10 mg tablet 10 mg PO BEDTIME 02/13/22 02/13/22 Unknown History losartan 100 1 tab PO QPM 02/13/22 02/13/22 Unknown History mg-hydrochlorothiazide 12.5 mg tablet metoprolol succinate 100 mg 200 mg PO BEDTIME 02/13/22 02/13/22 Unknown History tablet,extended release 24 hr multivitamin with minerals-folic 1 tab PO DAILY 02/13/22 02/13/22 Unknown History acid 200 mcg chewable tablet (Adult Multivitamin Gummies) tizanidine 4 mg tablet 4 mg PO BID PRN 02/13/22 02/13/22 Unknown History venlafaxine 150 mg 150 mg PO BEDTIME 02/13/22 02/13/22 Unknown History capsule,extended release 24 hr venlafaxine 75 mg capsule,extended 75 mg PO BEDTIME 02/13/22 02/13/22 Unknown History release 24 hr Allergies Allergy/AdvReac Type Severity Reaction Status Date / Time amlodipine Allergy Severe SWELLING Verified 02/13/22 09:01 OF THE FEET codeine Allergy Unknown unknown Verified 02/13/22 09:01 morphine Allergy Unknown PT STATES Verified 02/13/22 09:02 CAN HAVE IN SMALL DOSES fluticasone AdvReac Intermediate rapid Verified 02/13/22 09:01 [From Advair Diskus] heart rate salmeterol AdvReac Intermediate rapid Verified 02/13/22 09:01 [From Advair Diskus] heart rate tramadol [From Ultram] AdvReac Intermediate vomiting Verified 02/13/22 09:01 PFSH Acute PFSH: Medical History (Updated 02/13/22 @ 17:21 by Romeo Weems MD) Anemia, unspecified Anxiety B12 deficiency Carpal tunnel syndrome, right COPD (chronic obstructive pulmonary disease) Encounter for counseling for care management of patient with chronic conditions and complex health needs using nurse-based model Gastro-esophageal reflux disease without esophagitis Hx of irritable bowel syndrome Hyperglycemia Hypertension Mixed incontinence urge and stress Neural foraminal stenosis of cervical spine Personality disorder, unspecified Pyoderma Sjogren's disease Thyroid nodule follows with Dr Nunez, ([facility] in [place]) Vitamin D deficiency Surgical History History of tonsillectomy and adenoidectomy Hx of cholecystectomy Hx of dilation and curettage Family History Brother Cancer brain Hyperlipidemia Hypertension Father Hypertension Hyperlipidemia Cancer CAD (coronary artery disease) Mother Hypertension Hyperlipidemia CAD (coronary artery disease) Sister Hyperlipidemia Hypertension Diabetes Stroke Son Cancer Social History Smoking and tobacco status: former smoker Second hand smoke exposure: No Alcohol intake: current Alcohol intake frequency: few times a month Alcohol type: wine Lives independently: Yes Household members: none Housing: House Marital status: / service: No Current occupational status: disabled History of recent travel: No Current gender identity: Female Vitals/I&O/Wt Last Vital Signs Temp 98.0 F 02/13/22 16:35 Pulse 97 02/13/22 16:35 Resp 18 02/13/22 16:35 BP 159/83 02/13/22 16:35 Pulse Ox 97 02/13/22 16:35 02/13/22 02/13/22 02/13/22 06:59 14:59 22:59 Intake Total 0 / 0 Output Total 0 / 0 Balance 0 / 0 Weight last 48 hrs Weight 104.326 kg Physical Exam Const: COMMON NORMALS: alert GENERAL APPEARANCE: cooperative and other (Nauseated) NUTRITIONAL APPEARANCE: obese ORIENTATION/CONSCIOUSNESS: Yes awake HENMT: COMMON NORMALS: normocephalic, EAC's normal, Normal external nose present and moist oral mucous membranes HEAD & SCALP: normocephalic NOSE: Normal external nose present EXTERNAL AUDITORY CANAL: EAC's normal Neck/C-Spine: COMMON NORMALS: no meningeal signs Chest: CHEST: Yes Symmetrical chest wall rise Resp: COMMON NORMALS: clear to auscultation bilaterally AUSCULTATION: clear to auscultation bilaterally OTHER: Coughing, productive cough Cardio: COMMON NORMALS: regular rate, regular rhythm and No murmurs present (Cardio) RATE: regular rate RHYTHM: regular rhythm GI: COMMON NORMALS: Normal to inspection, nondistended, normoactive bowel sounds present and Soft to palpation PALPATION: Yes Soft to palpation and Yes Tenderness to palpation present (GI) (Epigastric, LUQ) Extremity: COMMON NORMALS: no pedal edema Neuro: COMMON NORMALS: moves all extremities SENSORIUM/ORIENTATION: Yes alert MENINGEAL SIGNS: Yes no meningeal signs Psych: COMMON NORMALS: mental status grossly normal Skin: COMMON NORMALS: no wounds RASHES: no rashes Data : 02/13/22 08:20 02/13/22 08:20 A&P Assessment and plan (1) Nausea and vomiting: With noted food bezoar. Status post EGD. Noted large amount of food in the stomach. Phytobezoar. Noted small Crysatl-Chance tear with small amount of bleeding. Injected. N.p.o. other than sips and cola. Status: Acute (2) Gastric bezoar: As above Status: Acute (3) Hypoxia: Initially noted on liters nasal cannula in ER. Currently on 3 L. Not normally on supplemental oxygen. Coughing, productive cough with thick purulent appearing sputum. Assessed COVID-19 PCR. Rapid flu. Chest x-ray. Had episode of vomiting yesterday. Discussed possibility of aspiration pneumonitis or pneumonia. Status: Acute (4) Alkaline phosphatase elevation: Noted chronically thin. Liver, gallbladder with normal appearance on CT scan. No RUQ pain or discomfort. Will need to follow-up with PCP. Status: Acute (5) Crystal-Chance tear: Noted and injected during EGD. Zofran as needed. Status: Acute Plan Spinal stenosis and chronic back pain: Continue home pain medicine Bipolar disorder, depression B12 deficiency COPD GERD HTN Giurgius disease Other chronic comorbidities noted Attestations Medical Necessity Statement*: Place in observation for additional assessment and management of nausea and vomiting, food bezoar, hypoxia. 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
--- NOTE | 2022-02-13 17:33 | PC.NURSE ---
Taking over care from primary nurse. Patient is resting in bed, room is clean and clutter free with call light in reach and bed alarm on.
--- NOTE | 2022-02-13 19:19 | PC.NURSE ---
patient c/o pain, hydrocodone ordered and patient refused stating she is allergic to hydrocodone, call placed to Dr. Delgado informing of patients pain and refusal to current pain med order, order received for tylenol 650 mg, patient made aware and refused tylenol, stated forget it, that doesn't work patient stated she takes oxycodone 5/325 at home, Dr Delgado notified, awaiting order
[2022-02-13] MEDS: oxyCODONE-APAP 5-325 mg Tablet 1 TAB PO (19:47)
[2022-02-13 20:10] LABS: Adenovirus Not Detected (NOT DETECT); Chlamydia Pneumoniae Not Detected (NOT DETECT); Coronavirus 229E,HKU1,NL63,OC4 Not Detected (NOT DETECT); Human Metapneumovirus Not Detected (NOT DETECT); Human Rhinovirus/Enterovirus Not Detected (NOT DETECT); Influenza A Not Detected (NOT DETECT); Influenza A H1 Not Detected (NOT DETECT); Influenza A H1-2009 Not Detected (NOT DETECT); Influenza A H3 Not Detected (NOT DETECT); Influenza B Not Detected (NOT DETECT); Mycoplasma Pneumoniae Not Detected (NOT DETECT); Parainfluenza Virus Type 1 Not Detected (NOT DETECT); Parainfluenza Virus Type 2 Not Detected (NOT DETECT); Parainfluenza Virus Type 3 Not Detected (NOT DETECT); Parainfluenza Virus Type 4 Not Detected (NOT DETECT); Respiratory Syncytial Virus A Not Detected (NOT DETECT); Respiratory Syncytial Virus B Not Detected (NOT DETECT); SARS-COV-2 Not Detected (NOT DETECT)
[2022-02-13] MEDS: BuSPIRONE 10 mg Tablet PO (21:17)
[2022-02-13] MEDS: metoprolol succinate ER (24 HR) 100 mg Tablet 200 MG PO (21:17)
[2022-02-13] MEDS: gabapentin 400 mg Capsule PO (21:17)
[2022-02-13] MEDS: venlafaxine ER (24HR) 75 mg Capsule PO (21:18)
[2022-02-13] MEDS: venlafaxine ER (24HR) 150 mg Capsule PO (21:18)
[2022-02-13] MEDS: loratadine 10 mg Tablet PO (21:18)
[2022-02-13 21:52] LABS: Add Urine Microscopic? NO; Charge for UA Resulting for Rev
[2022-02-13 22:00] LABS: Bilirubin Urine Neg (Negative); Blood Urine Neg (Negative); Glucose Urine UA Trace (Normal); Ketones Urine 1+ (Negative); Leukocyte Esterase Urine Negative (Negative); Nitrate Urine Negative (Negative); Protein Urine Neg (Negative); Specific Gravity, Urine 1.015 (1.005-1.030); Urine Appearance Clear (CLEAR); Urine Color Yellow (Yellow); Urobilinogen Urine Norm (Negative); pH Urine 5 (5-7)
[2022-02-13] MEDS: levalbuterol 0.63 mg/3 mL Neb INHALATION (23:18)
[2022-02-13 23:44] LABS: Glucose Point of Care 175 mg/dL (70-110)
[2022-02-14] VITALS: BP 152/80; PULSE 100; RESP 17; TEMP 36.6; O2SAT 94
[2022-02-14 04:00] VITALS: BP 149/77; PULSE 100; RESP 18; TEMP 36.7; O2SAT 96
[2022-02-14 05:20] LABS: Basophils % 0.2 %; Eosinophils % 0.2 %; Hematocrit 28.5 % (37.0-47.0); Hemoglobin 8.5 g/dL (11.5-15.3); Lymphocytes # 1.6 10^3/uL (0.8-4.8); Lymphocytes % 12.5 %; Mean Corpuscular HGB Conc 29.8 g/dL (30.0-36.0); Mean Corpuscular Hemoglobin 20.1 pg (28.0-34.0); Mean Corpuscular Volume 67.5 fl (81-99); Mean Platelet Volume 10.2 fL (7.4-10.4); Monocytes # 1.1 10^3/uL (0.2-0.9); Monocytes % 8.1 %; Neutrophils # 10.38 10^3/uL (1.8-7.7); Neutrophils % 78.7 %; Nucleated Red Blood Cells % 0 %; Platelet Count 354 10^3/cmm (130-400); Red Blood Count 4.22 10^6/uL (4.1-5.3); Red Cell Distribution Width 16.9 % (12.1-15.1); White Blood Count 13.2 10^3/uL (4.0-10.0)
[2022-02-14 05:40] LABS: Alanine Aminotransferase 41 U/L (0-33); Albumin Level 4.2 g/dL (3.5-5.2); Alkaline Phosphatase 242 IU/L (35-105); Aspartate Amino Transferase 42 U/L (0-32); Blood Urea Nitrogen 18 mg/dL (8-23); Calcium 9.6 mg/dL (8.5-10.5); Carbon Dioxide 22 mmol/L (22-29); Chloride 98 mmol/L (98-107); Globulin 3.4 g/dL (1.3-4.6); Glucose 172 mg/dL (65-115); Osmolality Calculated 288 mOsm/kg (285-295); Sodium 136 mmol/L (136-145); Total Bilirubin 0.2 mg/dL (0.15-1.2); Total Protein 7.6 g/dL (6.6-8.7)
[2022-02-14 07:50] VITALS: BP 178/90; PULSE 81; RESP 16; TEMP 36.5; O2SAT 98
[2022-02-14 08:00] VITALS: PULSE 78; RESP 17; O2SAT 98
[2022-02-14] MEDS: cyanocobalamin 1,000 mcg Tablet 1000 MCG PO (10:01)
[2022-02-14] MEDS: cholecalciferol (vitamin D3) 1,000 unit Tablet 1000 UNIT PO (10:01)
[2022-02-14] MEDS: docusate sodium 100 mg Capsule PO (10:01)
[2022-02-14] MEDS: gabapentin 100 mg Capsule PO ×2 (10:01→13:26)
[2022-02-14] MEDS: BuSPIRONE 10 mg Tablet PO (10:02)
[2022-02-14] MEDS: fluticasone nasal spray 16gm Btl 2 SPRAY INTRANASAL (10:03)
--- NOTE | 2022-02-14 10:18 | PC.CHAP ---
Pastoral Care Encounter/Spiritual Assessment Type of Contact [] Declined district extension service agent visit [] Patient/Family/Request visit [] Outpatient visit [] Follow-up visit [] Physician referral [] Code/Alert [x] Routine visit [] Staff referral [] Actively dying [] Patient sleeping [] Family support [] [] Out of room [] Palliative care [] [x] Receiving care in room [] Pre-surgical visit [] Trauma [] Long length of stay [] ICU visit [] Other: Relational/Emotional Strength [x] Patient feels connected with others/family/visitors/staff [] Distress [] Loneliness/isolation [] Abandonment Spirituality of Patient [x] Person of Leticia [] Attends Moravian of their Leticia [x] Believes in Prayer [] Reads Bible or Buddhist materials [] There are Spiritual issues to be addressed Clinical Manager Interventions [x] Prayer [x] Active listening [x] Non-anxious presence [x] Spiritual/emotional support [] Crisis/trauma care [x] Spiritual counseling [] Bereavement support [] Provided bereavement packet [] Provided Bible/devotional materials [] Provided toy/stuffed animal, coloring book to patient or family member [] Provided Communion [] Anointing/[place] [] Salvation [] Completed spiritual assessment [] Other: Impact on Illness or Injury [] Angry [] Fearful [] Anxious [] Often cries [] Exhaustion [] Unable to work [] Unable to attend confucianist [] Unable to walk/stand [] Unable to read [] Unable to drive [] Unable to eat/drink [] Unable to sleep [] Unable to be with family [] Patient intubated [] Other: Summary adb pain checked past surgers had scar thessues cleaned up scar tessues will be going home Time spent with patient 10 mins
[2022-02-14 11:32] VITALS: BP 152/88; PULSE 80; RESP 16; TEMP 36.9; O2SAT 95
--- NOTE | 2022-02-14 14:31 | PM.DCS ---
Discharge Providers Date of Admission: 02/13/22 15:20 Date of Discharge: February 14, 2022 Attending Provider at Admission: Kieran Duncan MD Attending Provider at Discharge: Kieran Duncan MD Primary Care Provider: Helen Noguera MD Diagnoses at Discharge Discharge Diagnosis (1) Nausea and vomiting: Status: Acute (2) Gastric bezoar: Status: Acute (3) Hypoxia: Status: Acute (4) Alkaline phosphatase elevation: Status: Acute (5) Crystal-Chance tear: Status: Acute Reason for Visit Reason for Visit: abd pain Brief History: Pleasant 71-year-old lady with history of multiple abdominal surgeries including gastric bypass who came in due to abdominal pain, nausea, vomiting after eating, has not been able to eat since Friday, on assessment with CT abdomen pelvis found to have a large amount of food stuff within the stomach, possibly gastric blood or versus recent meal, upper GI series limited evaluation of gastric bypass, with large central mass consistent with possible there was described by CT.? Mass is displacing gastric pouch and Daniel limb.? There is what is likely within the extruded pouchitis contrast does not communicate with the deltoid but is displaced around the mass.? With attempted p.o. challenge in ER was only able to hold 5 ounces of water.? Denies any history of diabetes.? Denies any medication or alcohol intake.? 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 Underwent EGD with attempted removal of what was possible from the large amount of food noted in the stomach, injection of small Crystal-Chance tear noted as well. After procedure she has been tolerating Cola in hopes of helping break down the bezoar further. As she has been tolerating liquids well so far, she is at this juncture going to return home with additional follow-up on outpatient side in office, as well as in office with Dr. Duncan for reassessment. Hemoglobin with minimal decrease to 8.5 from 9.1 with IV hydration. Please follow-up hemoglobin level in office. Oxygenation was monitored postprocedure. She was having some productive cough transiently, but this had resolved. Oxygenation remained stable, currently doing well on 2 L nasal cannula. Usually on oxygen at home. Chest x-ray was unremarkable. COVID-19 negative. Physical Exam Const: COMMON NORMALS: alert GENERAL APPEARANCE: cooperative and comfortable NUTRITIONAL APPEARANCE: obese ORIENTATION/CONSCIOUSNESS: Yes awake OTHER: Pleasant, conversant. Feeling much better. He denies any abdominal pain. Reports she is feeling very well today, and is eager to return home. HENMT: COMMON NORMALS: normocephalic, EAC's normal, Normal external nose present and moist oral mucous membranes HEAD & SCALP: normocephalic NOSE: Normal external nose present EXTERNAL AUDITORY CANAL: EAC's normal Neck/C-Spine: COMMON NORMALS: no meningeal signs Chest: CHEST: Yes Symmetrical chest wall rise Resp: COMMON NORMALS: clear to auscultation bilaterally EFFORT & INSPECTION: Yes able to speak in complete sentences AUSCULTATION: clear to auscultation bilaterally Cardio: COMMON NORMALS: regular rate, regular rhythm and No murmurs present (Cardio) RATE: regular rate RHYTHM: regular rhythm GI: COMMON NORMALS: Normal to inspection, nondistended, normoactive bowel sounds present, Soft to palpation and non-tender PALPATION: Yes Soft to palpation Extremity: COMMON NORMALS: no pedal edema Neuro: COMMON NORMALS: moves all extremities SENSORIUM/ORIENTATION: Yes alert MENINGEAL SIGNS: Yes no meningeal signs Psych: COMMON NORMALS: mental status grossly normal Skin: COMMON NORMALS: no wounds RASHES: no rashes Discharge Data Studies Completed and Pending Completed Studies During Hospitalization Category Date Time Status CT abdomen pelvis wo con [id number] Urgent Cat Scan 02/13/22 08:13 Completed CXRP [XR chest 1V portable [id number]] Routine Exams 02/13/22 16:43 Completed [place] upper GI series [id number] Stat Exams 02/13/22 10:33 Completed Pending at discharge Category Date Time Status Complete Blood Count w/Auto AM LABS Lab 02/15/22 04:00 Ordered Complete Blood Count w/Auto AM LABS Lab 02/16/22 04:00 Ordered Comprehensive Metabolic Panel AM LABS Lab 02/15/22 04:00 Ordered Comprehensive Metabolic Panel AM LABS Lab 02/16/22 04:00 Ordered Radiology Impressions Abdomen/Pelvis CT 02/13/22 08:13 IMPRESSION: Large amount of food stuff within the stomach may represent a gastric bezoar versus recent meal. COMMENTS: Consistent with the [employer]'s Incidental Findings Committee white paper ([employer]iol 2018): Any incidental renal lesion less than 1 cm or classified as too small to characterize, or any incidental cystic renal lesion characterized as simple-appearing, is likely benign. No follow-up imaging is recommended for these lesions per consensus recommendations based on imaging criteria. Upper GI Series 02/13/22 10:33 IMPRESSION: 1. Limited evaluation of the gastric bypass. 2. There is a large central mass consistent with a bezoar that was described by CT. This mass is displacing the gastric pouch and the Daniel limb. Bezoar is likely within the extruded pouch as contrast does not communicate with the bezoar but is displaced around the mass. Chest X-Ray 02/13/22 16:43 IMPRESSION: No acute findings. Laboratory Results WBC 13.2 10^3/uL (4.0-10.0) H 02/14/22 04:24 RBC 4.22 10^6/uL (4.1-5.3) 02/14/22 04:24 Hgb 8.5 g/dL (11.5-15.3) L 02/14/22 04:24 Hct 28.5 % (37.0-47.0) L 02/14/22 04:24 MCV 67.5 fl (81-99) L 02/14/22 04:24 MCH 20.1 pg (28.0-34.0) L 02/14/22 04:24 MCHC 29.8 g/dL (30.0-36.0) L 02/14/22 04:24 RDW 16.9 % (12.1-15.1) H 02/14/22 04:24 Plt Count 354 10^3/cmm (130-400) 02/14/22 04:24 MPV 10.2 fL (7.4-10.4) 02/14/22 04:24 Neut % (Auto) 78.7 % 02/14/22 04:24 Lymph % (Auto) 12.5 % 02/14/22 04:24 [place] % (Auto) 8.1 % 02/14/22 04:24 Eos % (Auto) 0.2 % 02/14/22 04:24 Baso % (Auto) 0.2 % 02/14/22 04:24 Neut # (Auto) 10.38 10^3/uL (1.8-7.7) H 02/14/22 04:24 Lymph # (Auto) 1.6 10^3/uL (0.8-4.8) 02/14/22 04:24 [place] # (Auto) 1.1 10^3/uL (0.2-0.9) H 02/14/22 04:24 Eos # (Auto) 0.0 10^3/uL (0.0-0.8) 02/14/22 04:24 Baso # (Auto) 0.0 10^3/uL (0.0-0.1) 02/14/22 04:24 Nucleated RBC % (auto) 0 % 02/14/22 04:24 Nucleated RBCs # 0.0 /100WBC 02/14/22 04:24 Sodium 136 mmol/L (136-145) 02/14/22 04:24 Potassium 4.0 mmol/L (3.5-5.1) 02/14/22 04:24 Chloride 98 mmol/L (98-107) 02/14/22 04:24 Carbon Dioxide 22 mmol/L (22-29) 02/14/22 04:24 Anion Gap 20.0 (5-19) H 02/14/22 04:24 BUN 18 mg/dL (8-23) 02/14/22 04:24 Creatinine 0.9 mg/dL (0.5-0.9) 02/14/22 04:24 GFR Calculation Not Reportable 02/14/22 04:24 Glucose 172 mg/dL (65-115) H 02/14/22 04:24 POC Glucose 175 mg/dL (70-110) H 02/13/22 23:41 Calculated Osmolality 288 mOsm/kg (285-295) 02/14/22 04:24 Calcium 9.6 mg/dL (8.5-10.5) 02/14/22 04:24 Total Bilirubin 0.2 mg/dL (0.15-1.2) 02/14/22 04:24 AST 42 U/L (0-32) H 02/14/22 04:24 ALT 41 U/L (0-33) H 02/14/22 04:24 Alkaline Phosphatase 242 IU/L (35-105) H 02/14/22 04:24 Total Protein 7.6 g/dL (6.6-8.7) 02/14/22 04:24 Albumin 4.2 g/dL (3.5-5.2) 02/14/22 04:24 Globulin 3.4 g/dL (1.3-4.6) 02/14/22 04:24 Lipase 60 U/L (13-60) 02/13/22 08:20 Urine Color Yellow (Yellow) 02/13/22 20:56 Urine Appearance Clear (CLEAR) 02/13/22 20:56 Urine pH 5 (5-7) 02/13/22 20:56 Ur Specific [place] 1.015 (1.005-1.030) 02/13/22 20:56 Urine Protein Neg (Negative) 02/13/22 20:56 Urine Glucose (UA) Trace (Normal) H 02/13/22 20:56 Urine Ketones 1+ (Negative) H 02/13/22 20:56 Urine Blood Neg (Negative) 02/13/22 20:56 Urine Nitrate Negative (Negative) 02/13/22 20:56 Urine Bilirubin Neg (Negative) 02/13/22 20:56 Urine Urobilinogen Norm mg/dL (Negative) 02/13/22 20:56 Ur Leukocyte Esterase Negative (Negative) 02/13/22 20:56 Coronavirus 229E (PCR) Not detected (NOT DETECT) 02/13/22 17:42 Influenza Type A Ag Cancelled 02/13/22 17:42 Influenza Type B Ag Cancelled 02/13/22 17:42 SARS-CoV-2 (PCR) Not detected (NOT DETECT) 02/13/22 17:42 Vitals Last Vital Signs Temp 98.4 F 02/14/22 11:32 Pulse 80 02/14/22 11:32 Resp 16 02/14/22 11:32 BP 152/88 02/14/22 11:32 Pulse Ox 95 02/14/22 11:32 Discharge Plan Discharge Patient Disposition: Home Condition: Stable Prescriptions: Continued oxycodone-acetaminophen 5-325 mg tablet 1 tab PO QID PRN (Reason: pain) 0RF Label Comments: Dr Haines/[facility] wehiqtbizs-jqfsgabdjqngo-ewvy 50-325-40 mg tablet 1 tab PO QID PRN (Reason: Migraine Headache) 0RF Label Comments: Dr. Haines/[facility] triamcinolone acetonide 0.1 % ointment 1 applic TOPICAL BID PRN (Reason: rash) Qty: 30 0RF (DME) tens 1 See Rx Instructions .Route .MEDSUPPLY Qty: 1 0RF Rx Instructions: As directed albuterol sulfate 2.5 mg /3 mL (0.083 %) solution for nebulization 2.5 mg inhalation QID PRN (Reason: shortness of breath or wheezing) Qty: 180 2RF (DME) nebulizer machine, mask, tubing/supplies See Rx Instructions .Route .MEDSUPPLY Qty: 1 0RF Rx Instructions: use with nebulized medications as directed Stool Softener 100 mg Capsule 100 - 300 mg PO DAILY 0RF Adult Multivitamin Gummies 200 mcg Tablet,Chewable 1 tab PO DAILY 0RF lidocaine 5 % ointment See Rx Instructions .ROUTE .COMPLEX 0RF Rx Instructions: APPLY TOPICALLY EVERY 4 HOURS FOR 12 HOURS THEN ALL OINTMENT OFF FOR 12 HOURS Melatonin Gummy 1 tab PO BEDTIME 0RF Vitamin B12 Gummy 1 tab PO DAILY 0RF Vitamin D3 Gummy See Rx Instructions .ROUTE .COMPLEX 0RF Rx Instructions: TAKES ONE GUMMY DAILY AND EVERY 2 WEEKS TAKES 50,000 UNITS OF THE GUMMIES venlafaxine 75 mg capsule,extended release 24hr 75 mg PO BEDTIME 0RF Rx Instructions: take with 150 mg to = 225 mg daily tizanidine 4 mg tablet 4 mg PO BID PRN (Reason: Muscle Spasticity) 0RF metoprolol succinate 100 mg tablet extended release 24 hr 200 mg PO BEDTIME 0RF gabapentin 400 mg capsule 400 mg PO BEDTIME 0RF venlafaxine 150 mg capsule,extended release 24hr 150 mg PO BEDTIME 0RF Rx Instructions: TAKE WITH 75 MG DAILY TO = 225 buspirone 10 mg tablet 10 mg PO BID 0RF gabapentin 100 mg capsule 100 mg PO BID@08,12 0RF albuterol sulfate 90 mcg/actuation HFA aerosol inhaler 2 puff inhalation Q6H PRN (Reason: Bronchospasm) 0RF Flonase Allergy Relief 50 mcg/actuation spray,suspension 2 spray intranasal DAILY 0RF loratadine 10 mg tablet 10 mg PO BEDTIME 0RF losartan-hydrochlorothiazide 100-12.5 mg tablet 1 tab PO QPM 0RF diclofenac sodium 1 % gel 2 g topical QID PRN (Reason: Pain) 0RF Rx Instructions: APPLY TO ELBOW,WRIST,OR ON FINGERS,PALM OR BACK OF HAND Discharge Orders: Discharge Order (Routine); Ordered 02/14/22 Ordered By: Romeo Weems Referrals: Kieran Duncan MD [Physician] - 1 week Helen Noguera MD [Primary Care Provider] - 4-7 days Discharge Diet: Advance as tolerated and Full LIquid Discharge Activity: Increase activity as tolerated and Oxygen as instructed Patient Instructions: Crystal-Chance Syndrome (GEN), Opioid Safety Activity Restrictions/Additional Instructions: Please follow-up with your primary doctor, as well as with Dr. Duncan's office with regards to food bezoar in your stomach, as well as small mucosal tear probably from vomiting. Continue Cola at home. Liquid diet, advance as tolerating. Return to ER in case you started having abdominal pain, recurrence of vomiting, inability to tolerate liquids, or any other concerning symptoms. Please note you are also seen to have some chronic elevation of alkaline phosphatase. Minimal elevation noted of AST and ALT. Please follow-up with primary provider to follow-up with your primary, as well as regarding chronic alkaline phosphatase elevation. Discharge Attestations Time Spent in Discharge Care*: greater than 30 min Quality Metrics Clinical Quality Measures [ No reported AMI, CVA or VTE this stay] Coding Level of Care Code Acute Chg FW DC note Diagnoses Nausea and vomiting R11.2 Gastric bezoar T18.2XXA Hypoxia R09.02 Alkaline phosphatase elevation R74.8 Crystal-Chance tear K22.6
[2022-02-14 15:07] VITALS: BP 152/88; PULSE 80; RESP 16; TEMP 36.9; O2SAT 95
== END 2022-02-14 16:00 | disposition home or self-care (01) ==
LOC: ER 12:46 → GILAB 12:51 → MEDSURG 15:23
PROVIDERS: Internal Medicine; Physician Assistant; Admitting Provider Internal Medicine; Emergency Provider Family Medicine; PCP Family Medicine; Visit Provider Internal Medicine
DX: R11.2 Nausea with vomiting, unspecified (principal); T18.2XXA Foreign body in stomach, initial encounter; R09.02 Hypoxemia; R74.8 Abnormal levels of other serum enzymes; K22.6 Gastro-esophageal laceration-hemorrhage syndrome; Z98.84 Bariatric surgery status; J44.9 Chronic obstructive pulmonary disease, unspecified; I10 Essential (primary) hypertension; Z87.891 Personal history of nicotine dependence; Z82.49 Family history of ischemic heart disease and other diseases of the circulatory system; Z83.3 Family history of diabetes mellitus; Z82.3 Family history of stroke; Z80.8 Family history of malignant neoplasm of other organs or systems
CPT/HCPCS: 36415; 36416; 43247; 71045; 74176; 74240; 80053; 81003; 82962; 83690; 85025; 87635; 93005; 94640; 96374; 96375; 96376; 99285; G0378; J0171; J0330; J0360; J1170; J2405; J2704; J2765; J3010; J3490; J7030; J7614

== ENCOUNTER → 2022-02-21 15:58 | Outpatient (BNVA) | payer MEDICARE, MEDICAID, SELFPAY | PROVIDERS: PCP Family Medicine; Visit Provider Internal Medicine | DX: D64.9 Anemia, unspecified (principal); T18.2XXA Foreign body in stomach, initial encounter; K90.9 Intestinal malabsorption, unspecified | CPT/HCPCS: 82607; 83550; 84443; 85025; 85045 ==

== ENCOUNTER → 2022-02-26 06:53 | Day surgery (SDC) | payer MEDICARE, MEDICAID, SELFPAY ==
[2022-02-26 07:20] VITALS: BP 181/106; PULSE 84; RESP 18; TEMP 36.3; O2SAT 98
[2022-02-26] MEDS: ferric carboxy (IVPB) 750 MG in sodium chloride 0.9% (100 ml) 100 ML 345 MG IV (07:25)
== END ==
PROVIDERS: PCP Family Medicine; Visit Provider Internal Medicine
DX: K90.9 Intestinal malabsorption, unspecified (principal)
CPT/HCPCS: 96365; J1439

== ENCOUNTER → 2022-03-05 08:55 | Day surgery (SDC) | payer MEDICARE, MEDICAID, SELFPAY ==
[2022-03-05 09:16] VITALS: BP 170/97; PULSE 80; RESP 18; TEMP 35.9; O2SAT 97
[2022-03-05] MEDS: ferric carboxy (IVPB) 750 MG in sodium chloride 0.9% (100 ml) 100 ML 345 MG IV (09:18)
== END ==
PROVIDERS: PCP Family Medicine; Visit Provider Internal Medicine
DX: K90.9 Intestinal malabsorption, unspecified (principal)
CPT/HCPCS: 96365; J1439

== ENCOUNTER → 2022-03-12 09:14 | Day surgery (SDC) | payer MEDICARE, MEDICAID, SELFPAY ==
[2022-03-12 09:43] VITALS: BP 163/93; PULSE 72; RESP 18; TEMP 35.6; O2SAT 98
[2022-03-12] MEDS: ferric carboxy (IVPB) 750 MG in sodium chloride 0.9% (100 ml) 100 ML 345 MG IV (09:44)
[2022-03-12 09:46] LABS: Basophils # 0.1 10^3/uL (0.0-0.1); Basophils % 0.6 %; Eosinophils # 0.3 10^3/uL (0.0-0.8); Eosinophils % 3.7 %; Hematocrit 30.3 % (37.0-47.0); Hemoglobin 9.2 g/dL (11.5-15.3); Lymphocytes # 2.4 10^3/uL (0.8-4.8); Mean Corpuscular HGB Conc 30.4 g/dL (30.0-36.0); Mean Corpuscular Hemoglobin 22.9 pg (28.0-34.0); Mean Corpuscular Volume 75.4 fl (81-99); Mean Platelet Volume 10.7 fL (7.4-10.4); Monocytes # 0.8 10^3/uL (0.2-0.9); Monocytes % 9.2 %; Neutrophils # 4.88 10^3/uL (1.8-7.7); Neutrophils % 57.6 %; Nucleated Red Blood Cells % 0 %; Platelet Count 231 10^3/cmm (130-400); Red Blood Count 4.02 10^6/uL (4.1-5.3); Red Cell Distribution Width 24.6 % (12.1-15.1); White Blood Count 8.5 10^3/uL (4.0-10.0)
[2022-04-24 09:47] LABS: Alanine Aminotransferase 22 U/L (0-33); Albumin Level 4.3 g/dL (3.5-5.2); Alkaline Phosphatase 233 U/L (35-105); Anion Gap 12.5 (5-19); Aspartate Amino Transferase 18 U/L (0-32); Blood Urea Nitrogen 15 mg/dL (8-23); Calcium 9.4 mg/dL (8.5-10.5); Carbon Dioxide 28 mmol/L (22-29); Chloride 101 mmol/L (98-107); Chol HDL Ratio 2.73 mg/dL (0.0-4.40); Cholesterol 213 mg/dL (0-200); Globulin 2.9 g/dL (1.3-4.6); Glucose 120 mg/dL (65-115); HDL Cholesterol 78 mg/dL (60-100); Iron 55 ug/dL (37-145); LDL Cholesterol Calculated 107 mg/dL (50-129); LDL HDL Ratio 1.37 RATIO (0.00-3.22); Osmolality Calculated 286 mOsm/kg (285-295); Potassium 4.5 mmol/L (3.5-5.1); Sodium 137 mmol/L (136-145); Total Bilirubin 0.2 mg/dL (0.15-1.2); Total Protein 7.2 g/dL (6.6-8.7); Triglycerides 142 mg/dL (0-150)
[2022-04-24 10:02] LABS: 25 Hydroxy Vitamin D 39 ng/mL (30-100); Vitamin B12 375 pg/mL (232-1245)
== END ==
PROVIDERS: PCP Family Medicine; Visit Provider Internal Medicine
DX: K90.9 Intestinal malabsorption, unspecified (principal); R74.8 Abnormal levels of other serum enzymes; E55.9 Vitamin D deficiency, unspecified; E53.8 Deficiency of other specified B group vitamins
CPT/HCPCS: 36415; 80053; 80061; 82306; 82607; 83540; 85025; 96365; J1439

== ENCOUNTER 2022-03-18 07:44 | Day surgery (SDC) | payer MEDICARE, MEDICAID, SELFPAY ==
[2022-03-15 10:49] VITALS: BMI 42.4
--- NOTE | 2022-03-18 07:18 | W.PM.OPSFHP ---
Same Day Surgery H&P Indication for Procedure/HPI DATE OF PROCEDURE: March 18, 2022 CHIEF COMPLAINT/INDICATIONFOR SURGICAL PROCEDURE: Iron deficiency anemia PREOP DIAGNOSIS: bezoar vs abominal mass vs food bolus PLANNED PROCEDURE: Operation Date: 03/18/22 09:15 Proposed Procedures p EGD and colonoscopy 52070,29068, D50.9(Not Applicable) - Kieran Duncan MD s Colonoscopy(Not Applicable) - Kieran Duncan MD Medications/Allergies* Home Medications Medication Instructions Recorded Confirmed Type lrwglhific-rplvzdvcjwxld-zovmnlxc 1 tab PO QID PRN 07/04/20 03/15/22 History 50 mg-325 mg-40 mg tablet oxycodone-acetaminophen 5 mg-325 1 tab PO QID PRN 07/04/20 03/15/22 History mg tablet Melatonin Gummy 1 tab PO BEDTIME 02/13/22 03/15/22 History Vitamin B12 Gummy 1 tab PO DAILY 02/13/22 03/15/22 History Vitamin D3 Gummy See Rx Instructions .ROUTE .COMPLEX 02/13/22 03/15/22 History albuterol sulfate 90 mcg/actuation 2 puff INHALATION Q6H PRN 02/13/22 03/15/22 History aerosol inhaler buspirone 10 mg tablet 10 mg PO BID 02/13/22 03/15/22 History diclofenac sodium 1 % topical gel 2 g TOPICAL QID PRN 02/13/22 03/15/22 History docusate sodium 100 mg capsule 100 - 300 mg PO DAILY 02/13/22 03/15/22 History (Stool Softener) fluticasone propionate 50 2 spray INTRANASAL DAILY 02/13/22 03/15/22 History mcg/actuation nasal spray,suspension (Flonase Allergy Relief) gabapentin 100 mg capsule 100 mg PO BID@08,12 02/13/22 03/15/22 History gabapentin 400 mg capsule 400 mg PO BEDTIME 02/13/22 03/15/22 History lidocaine 5 % topical ointment See Rx Instructions .ROUTE .COMPLEX 02/13/22 03/15/22 History loratadine 10 mg tablet 10 mg PO BEDTIME 02/13/22 03/15/22 History losartan 100 1 tab PO QPM 02/13/22 03/15/22 History mg-hydrochlorothiazide 12.5 mg tablet metoprolol succinate 100 mg 200 mg PO BEDTIME 02/13/22 03/15/22 History tablet,extended release 24 hr multivitamin with minerals-folic 1 tab PO DAILY 02/13/22 03/15/22 History acid 200 mcg chewable tablet (Adult Multivitamin Gummies) tizanidine 4 mg tablet 4 mg PO BID PRN 02/13/22 03/15/22 History venlafaxine 150 mg 150 mg PO BEDTIME 02/13/22 03/15/22 History capsule,extended release 24 hr venlafaxine 75 mg capsule,extended 75 mg PO BEDTIME 02/13/22 03/15/22 History release 24 hr Allergies/Adverse Reactions Allergy/AdvReac Type Severity Reaction Status Date / Time amlodipine Allergy Severe SWELLING Verified 03/12/22 08:20 OF THE FEET fluticasone AdvReac Intermediate rapid Verified 03/12/22 08:20 [From Advair Diskus] heart rate salmeterol AdvReac Intermediate rapid Verified 03/12/22 08:20 [From Advair Diskus] heart rate tramadol [From Ultram] AdvReac Intermediate vomiting Verified 03/12/22 08:20 morphine AdvReac Mild PT STATES Verified 03/12/22 08:20 CAN HAVE IN SMALL DOSES codeine AdvReac Unknown ADR-Itching Verified 03/12/22 08:20 Pertinent History/Comorbid Conditions* Medical History (Updated 02/21/22 @ 14:45 by Kieran Duncan MD) Anemia, unspecified Anxiety B12 deficiency Carpal tunnel syndrome, right COPD (chronic obstructive pulmonary disease) Encounter for counseling for care management of patient with chronic conditions and complex health needs using nurse-based model Gastro-esophageal reflux disease without esophagitis Hx of irritable bowel syndrome Hyperglycemia Hypertension Hypoxia Mixed incontinence urge and stress Neural foraminal stenosis of cervical spine Personality disorder, unspecified Pyoderma Sjogren's disease Thyroid nodule follows with Dr Nunez, ([facility] in [place]) Vitamin D deficiency Surgical History (Updated 11/18/19 @ 08:22 by Helen Noguera MD) History of tonsillectomy and adenoidectomy Hx of cholecystectomy Hx of dilation and curettage Family History (Updated 09/21/19 @ 12:38 by Katheryn Osman LPN, RT) Diabetes Sister CAD (coronary artery disease) Father Mother Hyperlipidemia Brother Father Mother Sister Cancer Brother brain Father Son Hypertension Brother Father Mother Sister Stroke Sister Social History Smoking and tobacco status: never smoked Second hand smoke exposure: No Alcohol intake: current Alcohol intake frequency: few times a month Alcohol type: wine Lives independently: Yes Household members: none Housing: House Marital status: / service: No Current occupational status: disabled History of recent travel: No Current gender identity: Female Pertinent Exam Findings alert, oriented x 3, clear to auscultation bilaterally, regular rate & rhythm, operative site marked and procedure specific exam findings Recommendations Surgery/Procedure today Coding Level of Care Code 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
[2022-03-18 08:22] VITALS: BP 195/105; PULSE 80; RESP 20; TEMP 36.3; O2SAT 97
[2022-03-18] MEDS: sodium chloride 0.9% 1,000 ML 30 ML IV (08:33)
--- NOTE | 2022-03-18 09:08 | ANES.PREANE2 ---
Pre-Anesthetic Assessment Height/Weight: Height 1.57 m Weight 105.233 kg Temp Pulse Resp BP Pulse Ox 97.3 F L 80 20 H 195/105 97 03/18/22 08:22 03/18/22 08:22 03/18/22 08:22 03/18/22 08:22 03/18/22 08:22 Preop Diagnosis: bezoar vs abominal mass vs food bolus Operation Date: 03/18/22 09:15 Proposed Procedures p EGD and colonoscopy [id number], D50.9(Not Applicable) - Kieran Duncan MD s Colonoscopy(Not Applicable) - Kieran Duncan MD Familial anesthetic complications: Patient describes asthma exacerbation with prior endoscopy Was Beta Shelby taken within 24 hours: Yes Was Clonidine taken within 24 hours: N/A Last intake: Intake Last Liquid Date 03/17/22 Last Liquid Time 17:00 Last Solid Date 03/16/22 Last Solid Time 20:00 Social No alcohol and No tobacco Exam alert, oriented x 3, clear to auscultation bilaterally and regular rate & rhythm Airway Submandibular: within normal limits Cervical ROM: within normal limits Mallampati: Class II Dentition: chipped (Multiple chipped upper front teeth ) Pulmonary Chronic Obstructive Pulmonary Disease Denies ADAL CV/HEM Hypertension METS > 4 None reported Hepatic None reported GI Gastroesophageal Reflux Disease Crystal Chance tear hx Bezoar hx Dyphagia hx Metabolic Morbid Obesity [facility] [place] Fibromyalgia Sjogren's disease Neuropsych Anxiety and Depression Cervical spine stenosis Anesthetic Plan ASA status: 3 Anesthesia: Anesthesia Evaluation, General and MAC Other: I discussed with the patient risks, goals, and benefits of MAC and general anesthesia. We discussed spectrum of MAC anesthesia including conversion to general as well as possibility of recall of intraoperative stimuli including discomfort/pain. Patient agrees to proceed with MAC. Risk of > 500 ml blood loss (7ml/kg in children): No Medications/Allergies Home Medications Medication Instructions Recorded Confirmed Last Taken Type triamcinolone acetonide 0.1 % 1 applic TOPICAL BID PRN #30 gm 09/23/19 03/15/22 03/11/22 Rx topical ointment tens #1 ea 05/16/20 03/12/22 03/11/22 Rx [id number]-[id number]-[id number] 1 tab PO QID PRN 07/04/20 03/18/22 03/12/22 History 50 mg-325 mg-40 mg tablet oxycodone-acetaminophen 5 mg-325 1 tab PO QID PRN 07/04/20 03/15/22 03/17/22 History mg tablet albuterol sulfate 2.5 mg (3 mL) INHALATION QID PRN 05/21/21 03/15/22 03/12/22 Rx #180 ml nebulizer machine, mask, #1 ea 05/21/21 03/12/22 03/11/22 Rx tubing/supplies Melatonin Gummy 1 tab PO BEDTIME 02/13/22 03/18/22 03/17/22 History Vitamin B12 Gummy 1 tab PO DAILY 02/13/22 03/15/22 03/16/22 History Vitamin D3 Gummy See Rx Instructions .ROUTE .COMPLEX 02/13/22 03/15/22 03/16/22 History albuterol sulfate 90 mcg/actuation 2 puff INHALATION Q6H PRN 02/13/22 03/15/22 03/12/22 History aerosol inhaler buspirone 10 mg tablet 10 mg PO BID 02/13/22 03/15/22 03/17/22 History diclofenac sodium 1 % topical gel 2 g TOPICAL QID PRN 02/13/22 03/15/22 03/11/22 History docusate sodium 100 mg capsule 100 - 300 mg PO DAILY 02/13/22 03/18/22 03/17/22 History (Stool Softener) fluticasone propionate 50 2 spray INTRANASAL DAILY 02/13/22 03/18/22 03/17/22 History mcg/actuation nasal spray,suspension (Flonase Allergy Relief) gabapentin 100 mg capsule 100 mg PO BID@08,12 02/13/22 03/15/22 03/17/22 History gabapentin 400 mg capsule 400 mg PO BEDTIME 02/13/22 03/15/22 03/17/22 History lidocaine 5 % topical ointment See Rx Instructions .ROUTE .COMPLEX 02/13/22 03/15/22 03/11/22 History loratadine 10 mg tablet 10 mg PO BEDTIME 02/13/22 03/18/22 03/17/22 History losartan 100 1 tab PO QPM 02/13/22 03/18/22 03/17/22 History mg-hydrochlorothiazide 12.5 mg tablet metoprolol succinate 100 mg 200 mg PO BEDTIME 02/13/22 03/15/22 03/17/22 History tablet,extended release 24 hr multivitamin with minerals-folic 1 tab PO DAILY 02/13/22 03/18/22 03/16/22 History acid 200 mcg chewable tablet (Adult Multivitamin Gummies) tizanidine 4 mg tablet 4 mg PO BID PRN 02/13/22 03/15/22 03/17/22 History venlafaxine 150 mg 150 mg PO BEDTIME 02/13/22 03/15/22 03/17/22 History capsule,extended release 24 hr venlafaxine 75 mg capsule,extended 75 mg PO BEDTIME 02/13/22 03/15/22 03/17/22 History release 24 hr Allergies Allergy/AdvReac Type Severity Reaction Status Date / Time amlodipine Allergy Severe SWELLING Verified 03/12/22 08:20 OF THE FEET fluticasone AdvReac Intermediate rapid Verified 03/12/22 08:20 [From Advair Diskus] heart rate salmeterol AdvReac Intermediate rapid Verified 03/12/22 08:20 [From Advair Diskus] heart rate tramadol [From Ultram] AdvReac Intermediate vomiting Verified 03/12/22 08:20 morphine AdvReac Mild PT STATES Verified 03/12/22 08:20 CAN HAVE IN SMALL DOSES codeine AdvReac Unknown ADR-Itching Verified 03/12/22 08:20 Current Medications Generic Name Dose Route Start Last Admin Trade Name Freq PRN Reason Stop Dose Admin Sodium Chloride 1,000 mls @ 30 mls/hr 03/18/22 08:00 03/18/22 08:33 Sodium Chloride 0.9% IV 03/19/22 07:59 30 mls/hr .Q24H CESILIA Administration PFS Anesthesia Medical History Anemia, unspecified Anxiety B12 deficiency Carpal tunnel syndrome, right COPD (chronic obstructive pulmonary disease) Encounter for counseling for care management of patient with chronic conditions and complex health needs using nurse-based model Gastro-esophageal reflux disease without esophagitis Hx of irritable bowel syndrome Hyperglycemia Hypertension Hypoxia Mixed incontinence urge and stress Neural foraminal stenosis of cervical spine Personality disorder, unspecified Pyoderma Sjogren's disease Thyroid nodule follows with Dr Nunez, ([facility] in [place]) Vitamin D deficiency Surgical History History of tonsillectomy and adenoidectomy Hx of cholecystectomy Hx of dilation and curettage Family History Brother Cancer brain Hyperlipidemia Hypertension Father Hypertension Hyperlipidemia Cancer CAD (coronary artery disease) Mother Hypertension Hyperlipidemia CAD (coronary artery disease) Sister Hyperlipidemia Hypertension Diabetes Stroke Son Cancer Social History Smoking and tobacco status: never smoked Second hand smoke exposure: No Alcohol intake: current Alcohol intake frequency: few times a month Alcohol type: wine Lives independently: Yes Household members: none Housing: House Marital status: / service: No Current occupational status: disabled History of recent travel: No Current gender identity: Female Data Anesthesia Cardiac Studies: No Data to Display
[2022-03-18 10:05] VITALS: BP 151/77; PULSE 73; RESP 18; TEMP 36.2; O2SAT 95
[2022-03-18 10:14] VITALS: BP 164/89; PULSE 68; RESP 18; O2SAT 95
--- NOTE | 2022-03-18 13:48 | ANE.PACU2 ---
Inpatient post-anesthesia follow up: Airway intact: Yes Vital signs: Temperature 97.1 F Pulse Rate 68 Respiratory Rate 18 Blood Pressure 164/89 Pulse Oximetry 95 Oxygen Delivery Me thod Room Air Oxygen Flow Rate Fraction of Inspir ed Oxygen Hydration adequate: Yes Nausea and vomiting: No Pain level: 1 Mental status: Baseline
== END 2022-03-18 10:40 | disposition home or self-care (01) ==
PROVIDERS: PCP Family Medicine; Visit Provider Internal Medicine
PROC: 0DJ08ZZ Inspection of Upper Intestinal Tract, Via Natural or Artificial Opening Endoscopic (ICD-10-PCS; CPT 43235; principal; 2022-03-18 09:15)
PROC: 0DJD8ZZ Inspection of Lower Intestinal Tract, Via Natural or Artificial Opening Endoscopic (ICD-10-PCS; CPT 45378; 2022-03-18 09:15)
DX: D50.9 Iron deficiency anemia, unspecified (principal); Z98.890 Other specified postprocedural states; J44.9 Chronic obstructive pulmonary disease, unspecified; I10 Essential (primary) hypertension; K21.9 Gastro-esophageal reflux disease without esophagitis; M79.7 Fibromyalgia; F41.9 Anxiety disorder, unspecified
CPT/HCPCS: 43235; 45378; J0330; J2704; J7030

== ENCOUNTER 2022-04-24 08:14 | Oncology outpatient (recurring) (ONCR) | payer MEDICARE, MEDICAID, SELFPAY | END 2022-04-24 23:59 | disposition home or self-care (01) | PROVIDERS: PCP Family Medicine; Visit Provider Internal Medicine Medical Oncology | DX: Z98.84 Bariatric surgery status; D50.9 Iron deficiency anemia, unspecified; Z79.899 Other long term (current) drug therapy | CPT/HCPCS: 99204 ==

== ENCOUNTER 2022-05-13 11:31 | Outpatient (CLI) | payer MEDICARE, MEDICAID, SELFPAY ==
[2022-05-13 12:07] LABS: Basophils % 0.5 %; Eosinophils # 0.1 10^3/uL (0.0-0.8); Eosinophils % 1.8 %; Hematocrit 38.6 % (37.0-47.0); Hemoglobin 12.9 g/dL (11.5-15.3); Lymphocytes # 1.8 10^3/uL (0.8-4.8); Lymphocytes % 22.8 %; Mean Corpuscular HGB Conc 33.4 g/dL (30.0-36.0); Mean Corpuscular Hemoglobin 28.2 pg (28.0-34.0); Mean Corpuscular Volume 84.5 fl (81-99); Mean Platelet Volume 10.7 fL (7.4-10.4); Monocytes # 0.6 10^3/uL (0.2-0.9); Neutrophils % 67.4 %; Nucleated Red Blood Cells % 0 %; Platelet Count 263 10^3/cmm (130-400); Red Blood Count 4.57 10^6/uL (4.1-5.3); Red Cell Distribution Width 20.1 % (12.1-15.1); White Blood Count 7.9 10^3/uL (4.0-10.0)
[2022-05-13 12:08] LABS: Reticulocyte % 1.3 % (0.5-2.0)
[2022-05-13 12:09] LABS: LAB Peripheral Smear Sent for Review
[2022-05-13 12:10] LABS: Erythrocyte Sedimentation Rate 17 mm/hr (0-15)
[2022-05-13 12:34] LABS: Ferritin 298 ng/mL (15-150); Homocysteine 10.84; Iron 70 ug/dL (37-145); Lactate Dehydrogenase 200 U/L (135-214); Percent Saturation 25.7 % (20-50); Total Iron Binding Capacity 272 mcg/dl; Unsaturated Iron Binding 202 ug/dL (112-347)
[2022-05-13 12:42] LABS: Folate Level 11.5 ng/mL (4.8-37.3)
[2022-05-14 10:03] LABS: PROTEIN, TOTAL 7.1 g/dL (6.1-8.1)
[2022-05-14 15:53] LABS: ALPHA 1 GLOBULIN 0.3 g/dL (0.2-0.3); ALPHA 2 GLOBULIN 0.8 g/dL (0.5-0.9); BETA 1 GLOBULIN 0.6 g/dL (0.4-0.6); BETA 2 GLOBULIN 0.4 g/dL (0.2-0.5); GAMMA GLOBULIN 0.9 g/dL (0.8-1.7)
[2022-05-16 11:59] LABS: Methylmalonic Acid 183 nmol/L (87-318)
== END 2022-05-13 11:32 | disposition home or self-care (01) ==
LOC: LAB 11:37
PROVIDERS: PCP Family Medicine; Visit Provider Internal Medicine Medical Oncology
DX: D64.9 Anemia, unspecified (principal)
CPT/HCPCS: 36415; 82728; 82746; 83010; 83090; 83540; 83550; 83615; 83921; 84155; 84165; 85025; 85045; 85651

== ENCOUNTER 2022-10-09 15:07 | Oncology outpatient (recurring) (ONCR) | payer MEDICARE, MEDICAID, SELFPAY ==
[2022-10-09 16:22] LABS: Basophils % 0.6 %; Eosinophils # 0.2 10^3/uL (0.0-0.8); Eosinophils % 2.7 %; Hematocrit 39.5 % (37.0-47.0); Hemoglobin 12.6 g/dL (11.5-15.3); Lymphocytes # 1.6 10^3/uL (0.8-4.8); Mean Corpuscular HGB Conc 31.9 g/dL (30.0-36.0); Mean Corpuscular Hemoglobin 29.5 pg (28.0-34.0); Mean Corpuscular Volume 92.5 fl (81-99); Mean Platelet Volume 11.2 fL (7.4-10.4); Monocytes # 0.6 10^3/uL (0.2-0.9); Monocytes % 7.8 %; Neutrophils % 65.5 %; Nucleated Red Blood Cells % 0 %; Platelet Count 255 10^3/cmm (130-400); Red Blood Count 4.27 10^6/uL (4.1-5.3); Red Cell Distribution Width 13.2 % (12.1-15.1)
== END 2022-10-22 23:59 | disposition home or self-care (01) ==
PROVIDERS: PCP Nurse Practitioner Family; Visit Provider Internal Medicine Medical Oncology
DX: D50.9 Iron deficiency anemia, unspecified (principal); Z98.84 Bariatric surgery status
CPT/HCPCS: 36415; 80053; 82728; 83540; 83550; 85025; 99213

== ENCOUNTER → 2023-06-11 17:11 | Outpatient (BNVA) | payer MEDICARE, MEDICAID, SELFPAY | PROVIDERS: PCP Nurse Practitioner Family; Visit Provider Nurse Practitioner Family | DX: E55.9 Vitamin D deficiency, unspecified (principal); E53.8 Deficiency of other specified B group vitamins; I10 Essential (primary) hypertension; D64.9 Anemia, unspecified; R73.9 Hyperglycemia, unspecified; R42 Dizziness and giddiness | CPT/HCPCS: 80053; 80061; 82306; 82607; 83036; 83550; 83735; 84443; 85025 ==

== ENCOUNTER 2025-07-25 12:40 | Outpatient (CLI) | payer MEDICARE, MEDICAID, SELFPAY ==
--- NOTE | 2025-07-25 12:45 | US_ITS ---
WS: [id number] ULTRASOUND RENAL TECHNIQUE: Ultrasound examination of both kidneys. CLINICAL INFORMATION: CHRONIC KIDNEY DISEASE FINDINGS: Limited study due to body habitus and bowel gas. Somewhat limited visualization of the kidneys bilaterally. Multiple bilateral renal cysts. Largest RIGHT upper pole simple cyst measuring 4.0 x 3.7 cm Largest LEFT kidney simple cyst measuring 5.7 x 4.5 cm RIGHT: Right kidney is normal in size and appearance where visualized. Echogenicity: Normal. Cortical thickness: 1.1 cm; Normal. Hydronephrosis: None. Perinephric fluid: None. Right kidney measures: 8.7 cm x 5.7 cm x 6.0 cm. LEFT: Left kidney is normal in size and appearance where visualized. Echogenicity: Normal. Cortical thickness: 1.0 cm; Normal. Hydronephrosis: None. Perinephric fluid: None. Left kidney measures: 9.8 cm x 6.0 cm x 6.1 cm. Normal visualized aorta. Diffuse bladder wall thickening measuring 7 to 8 mm US/US renal BI* [id number] IMPRESSION: Technically difficult study due to body habitus and bowel gas 1. No hydronephrosis in either kidney. 2. Bilateral renal cysts. 3. Diffuse bladder wall thickening can be seen with chronic cystitis.
== END 2025-07-25 12:41 | disposition home or self-care (01) ==
LOC: RAD 12:41
PROVIDERS: PCP Nurse Practitioner Family; Visit Provider Family Medicine
DX: N18.32 Chronic kidney disease, stage 3b (principal); N28.1 Cyst of kidney, acquired; N30.90 Cystitis, unspecified without hematuria
CPT/HCPCS: 76770